=== PATIENT | male | born 1940 | race Caucasian/White ===

== ENCOUNTER 2016-07-15 08:02 | Day surgery (SDC) | payer MEDICARE, OTHER ==
[~2016-07-15 08:02] MED LIST: ALPRAZolam 0.25 MG TAB PO PRN; ALPRAZolam 0.5 MG TAB PO PRN; ASPIRIN 325 MG TAB PO STA; ATORVASTATIN 80 MG TAB PO STA; NITROGLYCERIN SL TABS 0.4 MG TAB SUBLINGUAL PRN; SODIUM CHLORIDE 0.9% 1,000 ML in EMPTY BAG 1 BAG IV ONE
[2016-07-15] MEDS ORDERED: MIDAZOLAM 2 MG/2 ML VIAL IVP ONE ×2 (12:14)
[2016-07-15] MEDS ORDERED: NITROGLYCERIN OINT 4 INCH/4 GM TUBE TOPICAL ONE ×2 (12:14)
[2016-07-15] MEDS ORDERED: LIDOCAINE 2% INJ 20 MG/ML SQ ONE ×2 (12:15)
[2016-07-15] MEDS ORDERED: amLODIPine 5 MG TAB PO ONE (12:20)
[2016-07-15] MEDS ORDERED: hydrALAZINE HCL 20 MG/ML 1 ML VIAL IVP ONE (12:33)
[2016-07-15] MEDS ORDERED: IODIXANOL 320 MG/ML 100 ML INTRAARTER ONE (12:38)
[2016-07-15] MEDS ORDERED: FUROSEMIDE 10 MG/ML 4 ML VIAL IV ONE (12:38)
[2016-07-15] MEDS ORDERED: RX INFO: IV CONTRAST WAS GIVEN 1 EACH MISC MISCELLANE PRN (12:46)
--- NOTE | 2016-07-15 13:16 | CC ---
DATE OF SERVICE: INDICATION: Unstable angina. A 76-year-old gentleman who presented to me with progressively worsening shortness of breath has history of abdominal aortic aneurysm, status post aortic stent graft and also has extensive PAD. He had a stress test back in October of 2015 that showed a fixed inferior wall defect. Had a CT scan of the chest that was negative for pulmonary embolism in March 2016. Because of persistent unexplained symptoms, I advised the patient to undergo coronary angiogram to rule out significant coronary artery disease. He had been explained of risks, benefits, and alternatives. His renal function showed elevated creatinine with a low GFR. He understands contrast-induced nephropathy. He was admitted ahead of time and treated with IV fluids. PROCEDURE NOTE: Initially we were thinking of performing a radial artery catheterization on this patient; however, his radial pulses are feeble so we decided to go ahead and do a femoral cath. The patient underwent a femoral cath uneventfully. After obtaining informed consent, left heart catheterization and coronary angiogram are performed via the right femoral artery using standard Jasmine catheters. Patient tolerated the procedure well without any obvious immediate complications. I used a Glidewire to advance the catheter across the aortic stent graft and used a long exchange length wire to exchange all the catheters in the aortic root. Patient had elevated blood pressures and received Norvasc and will receive hydralazine if necessary. FINDINGS: 1. HEMODYNAMICS: Left ventricular end-diastolic pressure ( ) mm. The patient received IV Lasix. 2. ANGIOGRAPHIC DATA: Left main coronary artery: Left main coronary artery appears calcified with mild atherosclerotic plaque in the distal left main. It divides into left anterior descending coronary artery and circumflex coronary artery. LAD is a large vessel that gives off large-caliber diagonal branches. The third diagonal branch shows 80% to 90% stenosis in its proximal portion. Circumflex coronary artery has moderate stenosis in its proximal part which is 60% to 70% at its worse. LAD shows mild to moderate atherosclerotic plaque in its proximal part. Right coronary artery is a small nondominant vessel and shows moderate disease proximally. CONCLUSIONS: Three-vessel coronary artery disease with severe stenosis involving diagonal branch, moderate stenosis involving circumflex coronary artery and mild to moderate proximal to mid left anterior descending artery disease. I reviewed angiographic data with Dr. Remy Ortega who felt that angioplasty of the diagonal will be technically challenging ( ) of little benefit to the patient given the relatively small caliber vessel, but patient may benefit from the angioplasty of the circumflex. We will do this at another setting as patient has renal insufficiency and his contrast threshold is only 126. I used a total of 45 mL of contrast ( ) performed this procedure.
[2016-07-15 14:02] LABS: Glucose,Whole Blood 145 mg/dL (75-99)
[2016-07-15 17:25] VITALS: BMI 34.9
[2016-07-15] MEDS: SODIUM CHLORIDE 0.9% 1,000 ML IV SCH (18:16)
[2016-07-15] MEDS: METOPROLOL TARTRATE 25 MG TAB PO SCH (19:51)
[2016-07-16 04:22] VITALS: RESP 18
[2016-07-16] MEDS: SODIUM CHLORIDE 0.9% 1,000 ML IV SCH (05:40)
[2016-07-16] MEDS ORDERED: amLODIPine 10 MG TAB PO STA (07:35)
[2016-07-16] MEDS ORDERED: cloNIDine HCL 0.1 MG TAB PO STA (07:36)
--- NOTE | 2016-07-16 08:14 | DS ---
DATE OF ADMISSION: 07/15/2016 DATE OF DISCHARGE: 07/16/2016 FINAL DIAGNOSIS: Unstable angina. PROCEDURES PERFORMED: Left heart catheterization. SECONDARY DIAGNOSIS: Renal insufficiency. REASON FOR ADMISSION: Renal insufficiency, hydration. This is a 76-year-old gentleman who presented to us with unstable angina primarily in the form of progressive worsening shortness of breath, underwent cardiac catheterization by me that revealed significant 2-vessel coronary artery disease. He has renal insufficiency. We hydrated him before and after. The plan at this stage is to bring him back and attempt angioplasty of la posta circumflex coronary artery. He is going to check his electrolytes this morning. He has had a fairly uneventful night. Blood pressures have been poorly controlled this morning. It is 170/80. He is already on Zestril and Lopressor, received a dose of Norvasc yesterday. I am giving him dose of Norvasc this morning along with Catapres and I will further adjust the antihypertensives as outpatient. I also added Lasix and potassium. On exam this morning, he is comfortable at rest. Blood pressure is elevated. There is no jugular venous distention. Chest exam reveals good air entry bilaterally. Heart exam reveals first and second heart sounds. No gallop. Abdomen is soft. Exam of the extremities did not reveal any edema. Right groin shows a small hematoma. No pulsatile masses. No bruit. There is ecchymosis. Labs are pending at this time. Discharge medications include: 1. Norvasc 10 mg daily. 2. Aspirin. 3. Catapres 0.1 b.i.d. 4. Plavix 75 mg q. daily. 5. Lisinopril 20 q. daily. 6. Zestril 5 q. daily. 7. Metoprolol 25 b.i.d. 8. Along with potassium. FOLLOWUP: Patient will be followed up in my office in a week's time and will be scheduled for angioplasty and we will follow his renal function.
[2016-07-16 08:19] VITALS: BP 175/68; PULSE 96; TEMP 98.3
[2016-07-16] MEDS: METOPROLOL TARTRATE 25 MG TAB PO SCH (08:36)
[2016-07-16 08:53] LABS: Anion Gap 11 mmol/L; Blood Urea Nitrogen 24 mg/dL (9-20); Calcium 8.7 mg/dL (8.4-10.2); Carbon Dioxide 27 mmol/L (22-30); Chloride 102 mmol/L (98-107); Glucose 196 mg/dL (74-99); Non-African American GFR(MDRD) 51 (>60 ml/min/1.73 sqM); Potassium 4.6 mmol/L (3.5-5.1); Sodium 140 mmol/L (137-145)
[2016-07-16] MEDS ORDERED: ASPIRIN 81 MG CHEW PO SCH (09:00)
[2016-07-16] MEDS ORDERED: LISINOPRIL 5 MG TAB PO SCH (09:00)
[2016-07-16] MEDS ORDERED: POTASSIUM CHLORIDE ER 10 MEQ TAB.ER.PRT PO SCH (09:00)
[2016-07-16] MEDS ORDERED: FUROSEMIDE 20 MG TAB PO SCH (09:00)
[2016-07-16] MEDS ORDERED: CLOPIDOGREL 75 MG TAB PO SCH (09:00)
[2016-07-16] MEDS ORDERED: cloNIDine HCL 0.1 MG TAB PO SCH (21:00)
[2016-07-17] MEDS ORDERED: amLODIPine 10 MG TAB PO SCH (09:00)
== END 2016-07-16 11:29 | disposition home or self-care (01) ==
LOC: CATHCVL 08:02 → 3OBS 12:30 → CATHCVL 07-16 11:29
PROVIDERS: ATTEND Internal Medicine Interventional Cardiology
DX: I25.110 Atherosclerotic heart disease of native coronary artery with unstable angina pectoris (principal); N28.9 Disorder of kidney and ureter, unspecified; R03.0 Elevated blood-pressure reading, without diagnosis of hypertension; I45.10 Unspecified right bundle-branch block; R94.31 Abnormal electrocardiogram [ECG] [EKG]; I71.4 Abdominal aortic aneurysm, without rupture; I70.213 Atherosclerosis of native arteries of extremities with intermittent claudication, bilateral legs; Z79.02 Long term (current) use of antithrombotics/antiplatelets; Z79.82 Long term (current) use of aspirin; Z79.899 Other long term (current) drug therapy
CPT/HCPCS: 93458; 80048; C1769 ×3; C1894 ×2; J2001; J2250; J0360; J1940; Q9967

== ENCOUNTER 2016-08-12 14:28 | Emergency (ER) | payer MEDICARE, OTHER ==
--- NOTE | 2016-08-12 17:16 | ED ---
General Adult HPI - General Chief complaint: Abdominal Pain Stated complaint: High BP-sent by Time Seen by Provider: 08/12/16 16:45 Source: patient, family, RN notes reviewed Mode of arrival: wheelchair Limitations: no limitations - History of Present Illness Initial comments: This is a 76-year-old male with a history of a abdominal aortic aneurysm with a stent placement in November of last year who presents with complaints of elevated blood pressure and also exertional dyspnea. He states she's been having difficulty with his medication. He states prior to the aneurysm he did not take any medication out blood pressure is been variable. He also is a type II diabetic he states he had an episode of hypoglycemia recently quit taking his medication. He denies any headache dizziness blurry vision nausea vomiting or other symptoms just exertional dyspnea. - Related Data Home Medications Medication Instructions Recorded Confirmed Clopidogrel [Plavix] 75 mg PO DAILY 07/14/16 08/12/16 Furosemide [Lasix] 20 mg PO DAILY 07/14/16 08/12/16 Lisinopril [Zestril] 5 mg PO DAILY 07/14/16 08/12/16 Metoprolol Tartrate [Lopressor] 25 mg PO BID 07/14/16 08/12/16 Potassium Chloride [Klor-Con 10] 10 meq PO DAILY 07/14/16 08/12/16 amLODIPine [Norvasc] 10 mg PO DAILY 07/16/16 08/12/16 cloNIDine HCL [Catapres] 0.1 mg PO BID 07/16/16 08/12/16 Aspirin 325 mg PO DAILY 08/12/16 08/12/16 Atorvastatin [Lipitor] 20 mg PO HS 08/12/16 08/12/16 Isosorbide Mononitrate ER [Imdur] 30 mg PO DAILY 08/12/16 08/12/16 Nitroglycerin Sl Tabs [Nitrostat] 0.4 mg SUBLINGUAL Q5M PRN 08/12/16 08/12/16 cloNIDine HCL [Catapres] 0.3 mg PO TID 08/12/16 08/12/16 Allergies Allergy/AdvReac Type Severity Reaction Status Date / Time No Known Allergies Allergy Verified 08/12/16 16:41 Review of Systems ROS Statement: Those systems with pertinent positive or pertinent negative responses have been documented in the HPI. ROS Other: All systems not noted in ROS Statement are negative. Past Medical History Past Medical History: Hyperlipidemia, Hypertension History of Any Multi-Drug Resistant Organisms: None Reported Additional Past Surgical History / Comment(s): aortic aneursym Past Psychological History: No Psychological Hx Reported Smoking Status: Former smoker Past Alcohol Use History: Rare Past Drug Use History: None Reported General Exam - General Exam Comments Initial Comments: This is a well-developed well-nourished awake alert oriented times 3 male Limitations: no limitations General appearance: alert, in no apparent distress Head exam: Present: atraumatic, normocephalic, normal inspection Eye exam: Present: normal appearance, PERRL, EOMI. Absent: scleral icterus, conjunctival injection, periorbital swelling ENT exam: Present: mucous membranes dry Neck exam: Present: normal inspection. Absent: tenderness, meningismus, lymphadenopathy Respiratory exam: Present: normal lung sounds bilaterally. Absent: respiratory distress, wheezes, rales, rhonchi, stridor Cardiovascular Exam: Present: regular rate, normal rhythm, normal heart sounds. Absent: systolic murmur, diastolic murmur, rubs, gallop, clicks GI/Abdominal exam: Present: soft, normal bowel sounds. Absent: distended, tenderness, guarding, rebound, rigid Extremities exam: Present: normal inspection, full ROM, normal capillary refill , pedal edema (Trace edema). Absent: tenderness, joint swelling, calf tenderness Back exam: Present: normal inspection Neurological exam: Present: alert, oriented X3, CN II-XII intact Psychiatric exam: Present: normal affect, normal mood Skin exam: Present: warm, dry, intact, normal color. Absent: rash Course Vital Signs 08/12/16 08/12/16 08/12/16 14:53 16:27 17:00 Temperature 97.0 F L Pulse Rate 88 76 74 Respiratory 18 16 Rate Blood Pressure 183/84 146/80 159/77 O2 Sat by Pulse 93 L 98 98 Oximetry 08/12/16 08/12/16 18:00 18:56 Temperature 97.2 F L 97.6 F Pulse Rate 79 77 Respiratory 16 16 Rate Blood Pressure 157/85 183/74 O2 Sat by Pulse 99 97 Oximetry EKG Findings - EKG Results: EKG: interpreted by BEULAH, sinus rhythm (Sinus rhythm rate 77 appear to 194 QRS duration 122 QT/QTC of 400/452) block old septal changes no acute ST-T wave changes.) Medical Decision Making - Medical Decision Making I did a long discussion with the patient and his daughter regarding the findings. 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 He is asymptomatic at this time. - Lab Data Result diagrams: 08/12/16 17:00 08/12/16 17:00 Lab Results 08/12/16 08/12/16 08/12/16 Range/Units 17:00 17:00 17:00 WBC 8.0 (3.8-10.6) k/uL RBC 4.18 L (4.30-5.90) m/uL Hgb 14.3 (13.0-17.5) gm/dL Hct 42.4 (39.0-53.0) % MCV 101.5 H (80.0-100.0) fL MCH 34.3 (25.0-35.0) pg MCHC 33.8 (31.0-37.0) g/dL RDW 13.2 (11.5-15.5) % Plt Count 192 (150-450) k/uL Neutrophils % 68 % Lymphocytes % 19 % Monocytes % 7 % Eosinophils % 2 % Basophils % 1 % Neutrophils # 5.4 (1.3-7.7) k/uL Lymphocytes # 1.5 (1.0-4.8) k/uL Monocytes # 0.5 (0-1.0) k/uL Eosinophils # 0.2 (0-0.7) k/uL Basophils # 0.1 (0-0.2) k/uL Macrocytosis Slight Sodium (137-145) mmol/L Potassium (3.5-5.1) mmol/L Chloride (98-107) mmol/L Carbon Dioxide (22-30) mmol/L Anion Gap mmol/L BUN (9-20) mg/dL Creatinine (0.66-1.25) mg/dL Est GFR (MDRD) Af Amer (>60 ml/min/1.73 sqM) Est GFR (MDRD) Non-Af (>60 ml/min/1.73 sqM) Glucose (74-99) mg/dL Calcium (8.4-10.2) mg/dL Magnesium (1.6-2.3) mg/dL Total Bilirubin (0.2-1.3) mg/dL AST (17-59) U/L ALT (21-72) U/L Alkaline Phosphatase (38-126) U/L Total Creatine Kinase 88 (55-170) U/L CK-MB (CK-2) 1.4 (0.0-2.4) ng/mL CK-MB (CK-2) Rel Index 1.6 NT-Pro-B Natriuret Pep 314 pg/mL Total Protein (6.3-8.2) g/dL Albumin (3.5-5.0) g/dL 08/12/16 Range/Units 17:00 WBC (3.8-10.6) k/uL RBC (4.30-5.90) m/uL Hgb (13.0-17.5) gm/dL Hct (39.0-53.0) % MCV (80.0-100.0) fL MCH (25.0-35.0) pg MCHC (31.0-37.0) g/dL RDW (11.5-15.5) % Plt Count (150-450) k/uL Neutrophils % % Lymphocytes % % Monocytes % % Eosinophils % % Basophils % % Neutrophils # (1.3-7.7) k/uL Lymphocytes # (1.0-4.8) k/uL Monocytes # (0-1.0) k/uL Eosinophils # (0-0.7) k/uL Basophils # (0-0.2) k/uL Macrocytosis Sodium 138 (137-145) mmol/L Potassium 4.9 (3.5-5.1) mmol/L Chloride 100 (98-107) mmol/L Carbon Dioxide 26 (22-30) mmol/L Anion Gap 12 mmol/L BUN 24 H (9-20) mg/dL Creatinine 1.30 H (0.66-1.25) mg/dL Est GFR (MDRD) Af Amer >60 (>60 ml/min/1.73 sqM) Est GFR (MDRD) Non-Af 54 (>60 ml/min/1.73 sqM) Glucose 117 H (74-99) mg/dL Calcium 9.4 (8.4-10.2) mg/dL Magnesium 2.0 (1.6-2.3) mg/dL Total Bilirubin 0.9 (0.2-1.3) mg/dL AST 39 (17-59) U/L ALT 28 (21-72) U/L Alkaline Phosphatase 54 (38-126) U/L Total Creatine Kinase (55-170) U/L CK-MB (CK-2) (0.0-2.4) ng/mL CK-MB (CK-2) Rel Index NT-Pro-B Natriuret Pep pg/mL Total Protein 7.7 (6.3-8.2) g/dL Albumin 4.4 (3.5-5.0) g/dL - Radiology Data Radiology results: report reviewed (I did review the x-ray report no acute findings), image reviewed Disposition Clinical Impression: Dyspnea on exertion, Hypertension Disposition: HOME SELF-CARE Condition: Good Instructions: Dyspnea (ED), Hypertension (ED) Referrals: Tye Dowd DO [Primary Care Provider] - 1-2 days
[2016-08-12 17:20] LABS: Basophils # (A) 0.1 k/uL (0-0.2); Basophils % (A) 1 %; CH 35.1; CHCM 34.8; Eosinophils # (A) 0.2 k/uL (0-0.7); Eosinophils % (A) 2 %; HCT 42.4 % (39.0-53.0); HDW 2.83; HGB 14.3 gm/dL (13.0-17.5); Luc # (Auto) 0.29; Luc % (Auto) 4; Lymphocytes # (A) 1.5 k/uL (1.0-4.8); Lymphocytes % (A) 19 %; MCH 34.3 pg (25.0-35.0); MCHC 33.8 g/dL (31.0-37.0); MCV 101.5 fL (80.0-100.0); Macrocytosis Slight; Mean Platelet Volume 8.7; Monocytes # (A) 0.5 k/uL (0-1.0); Monocytes % (A) 7 %; Neutrophils # (A) 5.4 k/uL (1.3-7.7); Neutrophils % (A) 68 %; RBC 4.18 m/uL (4.30-5.90); RDW 13.2 % (11.5-15.5); WBC (Perox) 8.27
[2016-08-12 17:32] LABS: ALT 28 U/L (21-72); AST 39 U/L (17-59); Alkaline Phosphatase 54 U/L (38-126); Anion Gap 12 mmol/L; Blood Urea Nitrogen 24 mg/dL (9-20); Calcium 9.4 mg/dL (8.4-10.2); Carbon Dioxide 26 mmol/L (22-30); Chloride 100 mmol/L (98-107); Glucose 117 mg/dL (74-99); Non-African American GFR(MDRD) 54 (>60 ml/min/1.73 sqM); Sodium 138 mmol/L (137-145); Total Bilirubin 0.9 mg/dL (0.2-1.3); Total Protein 7.7 g/dL (6.3-8.2)
[2016-08-12 17:36] LABS: Potassium 4.9 mmol/L (3.5-5.1)
[2016-08-12 17:51] LABS: Creatine Kinase MB 1.4 ng/mL (0.0-2.4)
--- NOTE | 2016-08-12 18:21 | XR ---
EXAMINATION TYPE: XR chest 2V DATE OF EXAM: 08/12/2016 5:52 PM COMPARISON: 11/14/2015 HISTORY: Short of breath TECHNIQUE: Frontal and lateral views of the chest are obtained. FINDINGS: Heart and mediastinum are normal. Lungs are clear. Costophrenic angles are clear. There ar e no hilar masses. There are chest leads. Bony thorax is intact. IMPRESSION: No active cardiopulmonary disease. No change.
[2016-08-12 19:33] VITALS: BP 175/80; PULSE 87; RESP 18; TEMP 97.8
== END 2016-08-12 19:33 | disposition home or self-care (01) ==
LOC: EC 14:28
DX: R06.09 Other forms of dyspnea (principal); I10 Essential (primary) hypertension; E78.5 Hyperlipidemia, unspecified; Z95.828 Presence of other vascular implants and grafts; Z79.82 Long term (current) use of aspirin; Z79.02 Long term (current) use of antithrombotics/antiplatelets; Z79.899 Other long term (current) drug therapy; Z87.891 Personal history of nicotine dependence
CPT/HCPCS: 36415; 71020; 80053; 82550; 82553; 83735; 83880; 85025; 93005; 99284

== ENCOUNTER → 2016-09-09 | Outpatient (CLI) | payer MEDICARE, OTHER ==
--- NOTE | 2016-09-09 22:23 | US ---
EXAMINATION TYPE: US carotid duplex RT DATE OF EXAM: 09/09/2016 3:38 PM COMPARISON: 01/27/2011 CLINICAL HISTORY: 76-year-old male R09.89 Right carotid bruit. TECHNIQUE: Carotid duplex ultrasound examination. Indirect Doppler criteria was utilized. FINDINGS: There is moderate atherosclerotic change at the right carotid bifurcation and moderate to severe athe rosclerotic change at the left bifurcation. The left ICA is noted to be tortuous. EXAM MEASUREMENTS: RIGHT: Peak Systolic Velocity (PSV) cm/sec ----- Right CCA: 74.0 ----- Right ICA: 95.8 ----- Right ECA: 92.9 ICA/CCA ratio: 1.3 RIGHT: End Diastole cm/sec ----- Right CCA: 12.9 ----- Right ICA: 24.6 ----- Right ECA: 7.1 LEFT: Peak Systolic Velocity (PSV) cm/sec ----- Left CCA: 88.7 ----- Left ICA: 139.2 ----- Left ECA: 171.7 ICA/CCA ratio: 1.6 LEFT: End Diastole cm/sec ----- Left CCA: 12.8 ----- Left ICA: 27.6 ----- Left ECA: 171.7 VERTEBRALS (direction of flow): Right Vertebral: Antegrade Left Vertebral: Antegrade IMPRESSION: Moderate to severe atherosclerotic change at the left carotid bifurcation possibly with a moderate (5 0-69%) proximal ICA stenosis. Criteria for Assigning % of Stenosis / Diameter reduction (Estimation based on the indirect measurements of the internal carotid artery velocities (ICA PSV). 1. Normal (no stenosis)=ICA PSV < 125 cm/s: ratio < 2.0: ICA EDV<40 cm/s. 2. Less than 50% stenosis=ICA PSV < 125 cm/s: ratio < 2.0: ICA EDV<40 cm/s. 3. 50 to 69% stenosis=ICA PSV of 125 to 230 cm/s: ration 2.0 ? 4.0: ICA EDV 40-100 cm/s. 4. Greater than 70% stenosis to near occlusion= ICA PSV > 230 cm/s: ratio > 4.0: ICA EDV > 100 cm/s. 5. Near occlusion= ICA PSV velocities may be low or undetectable: variable ratio and ICA EDV. 6. Total occlusion=unable to detect flow.
== END | disposition home or self-care (01) ==
LOC: RADUSWWP 15:02
PROVIDERS: ATTEND Family Medicine
DX: I65.22 Occlusion and stenosis of left carotid artery (principal)
CPT/HCPCS: 93880

== ENCOUNTER 2016-12-05 07:30 | Emergency (ER) | payer MEDICARE, OTHER ==
[2016-12-05 07:41] VITALS: PULSE 64
--- NOTE | 2016-12-05 08:22 | ED ---
General Adult HPI - General Chief complaint: Wound/Laceration Stated complaint: POST OP HEMORAGE Time Seen by Provider: 12/05/16 08:04 Source: patient, EMS, RN notes reviewed Mode of arrival: EMS Limitations: no limitations - History of Present Illness Initial comments: 76-year-old male presents emergency Department chief complaint of left leg wound bleeding. Patient states that he was taking a shower and the aide was helping him at [facility] in which the scab came off and hours squirting blood from his left calf region. Patient had bypass performed at [facility] 12 days ago. Patient states she's had left leg pain over the last few days to 1 week states that there is a large amount of bruising. He states is not worsened denies any chest pain or shortness of breath from his baseline. Patient states that they put pressure on his left leg for a few seconds and it would not stop. Bleeding has stopped at this point with pressure dressing. Patient does take Plavix. - Related Data Home Medications Medication Instructions Recorded Confirmed Clopidogrel [Plavix] 75 mg PO DAILY 07/14/16 08/12/16 Furosemide [Lasix] 20 mg PO DAILY 07/14/16 08/12/16 Lisinopril [Zestril] 5 mg PO DAILY 07/14/16 08/12/16 Metoprolol Tartrate [Lopressor] 25 mg PO BID 07/14/16 08/12/16 Potassium Chloride [Klor-Con 10] 10 meq PO DAILY 07/14/16 08/12/16 amLODIPine [Norvasc] 10 mg PO DAILY 07/16/16 08/12/16 cloNIDine HCL [Catapres] 0.1 mg PO BID 07/16/16 08/12/16 Aspirin 325 mg PO DAILY 08/12/16 08/12/16 Atorvastatin [Lipitor] 20 mg PO HS 08/12/16 08/12/16 Isosorbide Mononitrate ER [Imdur] 30 mg PO DAILY 08/12/16 08/12/16 Nitroglycerin Sl Tabs [Nitrostat] 0.4 mg SUBLINGUAL Q5M PRN 08/12/16 08/12/16 cloNIDine HCL [Catapres] 0.3 mg PO TID 08/12/16 08/12/16 Allergies Allergy/AdvReac Type Severity Reaction Status Date / Time No Known Allergies Allergy Verified 08/12/16 16:41 Review of Systems ROS Statement: Those systems with pertinent positive or pertinent negative responses have been documented in the HPI. ROS Other: All systems not noted in ROS Statement are negative. Past Medical History Past Medical History: Hyperlipidemia, Hypertension History of Any Multi-Drug Resistant Organisms: None Reported Additional Past Surgical History / Comment(s): aortic aneursym and bypass surgery 11/29 Past Psychological History: No Psychological Hx Reported Smoking Status: Former smoker Past Alcohol Use History: Rare Past Drug Use History: None Reported General Exam Limitations: no limitations General appearance: alert, in no apparent distress Respiratory exam: Present: normal lung sounds bilaterally. Absent: respiratory distress, wheezes, rales, rhonchi, stridor Cardiovascular Exam: Present: regular rate, normal rhythm, normal heart sounds. Absent: systolic murmur, diastolic murmur, rubs, gallop, clicks Extremities exam: Present: other (Extensive bruising to extremities, left leg there is hematoma noted, multiple healing incisions left calf there is 0.5 cm open wound with no active bleeding pulses are equal bilaterally) Skin exam: Present: warm, dry Course Vital Signs 12/05/16 12/05/16 07:31 08:47 Temperature 97.7 F 98.6 F Pulse Rate 64 64 Respiratory 17 18 Rate Blood Pressure 134/63 131/53 O2 Sat by Pulse 96 94 L Oximetry Medical Decision Making - Medical Decision Making 76-year-old male present emergency department with chief complaint of left wound bleeding. This was dressed by EMS and there is no active bleeding it has been open for greater than 10 minutes with no active bleeding. Steri-Strips were placed on the wound to help close the gap and dressing reapplied. I did explain to patient that if rebleeding occurs that he needs to put pressure on for at least 10 minutes and if symptoms persist to return the emergency Department. Disposition Clinical Impression: Bleeding from wound Disposition: HOME SELF-CARE Condition: Stable Instructions: Acute Wound Care (ED) Additional Instructions: If rebleeding occurs apply pressure for 10 minutes.Please return to the Emergency Department if symptoms worsen or any other concerns. Referrals: Tye Dowd DO [Primary Care Provider] - 1-2 days Time of Disposition: 08:22
[2016-12-05 08:49] VITALS: BP 131/53; RESP 18; TEMP 98.6
== END 2016-12-05 08:49 | disposition home or self-care (01) ==
LOC: EC 07:30
DX: M96.830 Postprocedural hemorrhage of a musculoskeletal structure following a musculoskeletal system procedure (principal); E78.5 Hyperlipidemia, unspecified; I10 Essential (primary) hypertension; Z87.891 Personal history of nicotine dependence; Y83.2 Surgical operation with anastomosis, bypass or graft as the cause of abnormal reaction of the patient, or of later complication, without mention of misadventure at the time of the procedure; Z79.01 Long term (current) use of anticoagulants; Z79.82 Long term (current) use of aspirin; Z79.899 Other long term (current) drug therapy
CPT/HCPCS: 99283

== ENCOUNTER → 2017-06-04 | Outpatient (CLI) | payer MEDICARE, OTHER | END | disposition home or self-care (01) | LOC: RADMRIMAIN 12:15 | PROVIDERS: ATTEND Family Medicine | DX: Z53.9 Procedure and treatment not carried out, unspecified reason (principal) ==

== ENCOUNTER 2017-06-28 14:09 | Observation (INO) | payer MEDICARE, OTHER ==
--- NOTE | 2017-06-28 14:15 | ED ---
General Adult HPI - General Chief complaint: Neuro Symptoms/Deficit Stated complaint: Syncope Time Seen by Provider: 06/28/17 14:12 Source: patient, EMS, RN notes reviewed, old records reviewed Mode of arrival: EMS Limitations: no limitations - History of Present Illness Initial comments: This is a 69-year-old male to the ER for evaluation of syncopal event. Patient has history of heart disease. Patient is recent history of nausea vomiting and loose stools. Not feeling well, decreased appetite and activity level. Patient states he was getting out of his car when he had a witnessed syncopal event, patient states he did urinate himself. He denies headache chest pain no shortness of breath. Patient's main complaint is generalized weakness and not feeling well. No current or travel history no known sick contacts or recent change in medications - Related Data Home Medications Medication Instructions Recorded Confirmed Clopidogrel [Plavix] 75 mg PO DAILY 07/14/16 06/28/17 Nitroglycerin Sl Tabs [Nitrostat] 0.4 mg SUBLINGUAL Q5M PRN 08/12/16 06/28/17 Aspirin EC [Ecotrin Low Dose] 81 mg PO DAILY 06/28/17 06/28/17 Metoprolol Tartrate [Lopressor] 50 mg PO BID 06/28/17 06/28/17 Pravastatin Sodium [Pravachol] 10 mg PO HS 06/28/17 06/28/17 Allergies Allergy/AdvReac Type Severity Reaction Status Date / Time No Known Allergies Allergy Verified 06/28/17 14:52 Review of Systems ROS Statement: Those systems with pertinent positive or pertinent negative responses have been documented in the HPI. ROS Other: All systems not noted in ROS Statement are negative. Past Medical History Past Medical History: Hyperlipidemia, Hypertension History of Any Multi-Drug Resistant Organisms: None Reported Additional Past Surgical History / Comment(s): aortic aneursym and bypass surgery 11/29 Past Psychological History: No Psychological Hx Reported Smoking Status: Former smoker Past Alcohol Use History: Rare Past Drug Use History: None Reported General Exam Limitations: no limitations General appearance: alert, in no apparent distress Head exam: Present: atraumatic, normocephalic, normal inspection Eye exam: Present: normal appearance, PERRL, EOMI. Absent: scleral icterus, conjunctival injection, periorbital swelling ENT exam: Present: normal exam, mucous membranes moist Neck exam: Present: normal inspection. Absent: tenderness, meningismus, lymphadenopathy Respiratory exam: Present: normal lung sounds bilaterally. Absent: respiratory distress, wheezes, rales, rhonchi, stridor Cardiovascular Exam: Present: regular rate, normal rhythm, normal heart sounds. Absent: systolic murmur, diastolic murmur, rubs, gallop, clicks GI/Abdominal exam: Present: soft, normal bowel sounds. Absent: distended, tenderness, guarding, rebound, rigid Extremities exam: Present: normal inspection, full ROM, normal capillary refill. Absent: tenderness, pedal edema, joint swelling, calf tenderness Back exam: Present: normal inspection Neurological exam: Present: alert, oriented X3, CN II-XII intact Psychiatric exam: Present: normal affect, normal mood Skin exam: Present: warm, dry, intact, normal color. Absent: rash Course Vital Signs 06/28/17 06/28/17 06/28/17 14:11 14:21 16:14 Temperature 98 F Pulse Rate 58 L 58 L 68 Respiratory 16 20 16 Rate Blood Pressure 121/51 99/60 124/58 O2 Sat by Pulse 97 90 L 97 Oximetry - Reevaluation(s) Reevaluation #1: 06/28/17 16:26 Patient is without syncopal event here in the emergency room, patient states she still does not feel well EKG Findings - EKG Comments: EKG Findings:: EKG shows sinus bradycardia rate of 58, RI 194, QRS 142, QTc 481 Medical Decision Making - Medical Decision Making 69 male the ER status post syncopal event witnessed syncope, patient passed out did lose his urine. Patient states he does feel significantly weak nauseous on arrival to ER with vomiting. Patient be admitted for continued IV hydration and monitoring of rhythm as he is a history of heart disease - Lab Data Result diagrams: 06/28/17 14:17 06/28/17 14:17 Lab Results 06/28/17 06/28/17 06/28/17 Range/Units 14:15 14:17 14:17 WBC 8.6 (3.8-10.6) k/uL RBC 4.02 L (4.30-5.90) m/uL Hgb 13.4 (13.0-17.5) gm/dL Hct 41.7 (39.0-53.0) % MCV 103.8 H (80.0-100.0) fL MCH 33.3 (25.0-35.0) pg MCHC 32.1 (31.0-37.0) g/dL RDW 13.9 (11.5-15.5) % Plt Count 184 (150-450) k/uL Neutrophils % 72 % Lymphocytes % 15 % Monocytes % 7 % Eosinophils % 3 % Basophils % 1 % Neutrophils # 6.2 (1.3-7.7) k/uL Lymphocytes # 1.3 (1.0-4.8) k/uL Monocytes # 0.6 (0-1.0) k/uL Eosinophils # 0.3 (0-0.7) k/uL Basophils # 0.0 (0-0.2) k/uL Macrocytosis Slight PT (9.0-12.0) sec INR (<1.2) APTT (22.0-30.0) sec D-Dimer (<0.60) mg/L FEU Sodium (137-145) mmol/L Potassium (3.5-5.1) mmol/L Chloride (98-107) mmol/L Carbon Dioxide (22-30) mmol/L Anion Gap mmol/L BUN (9-20) mg/dL Creatinine (0.66-1.25) mg/dL Est GFR (MDRD) Af Amer (>60 ml/min/1.73 sqM) Est GFR (MDRD) Non-Af (>60 ml/min/1.73 sqM) Glucose (74-99) mg/dL POC Glucose (mg/dL) 160 H (75-99) mg/dL POC Glu Senior Tableau Developer ID [email or web address] Plasma Lactic Acid Keshav (0.7-2.0) mmol/L Calcium (8.4-10.2) mg/dL Phosphorus (2.5-4.5) mg/dL Magnesium (1.6-2.3) mg/dL Total Bilirubin (0.2-1.3) mg/dL AST (17-59) U/L ALT (21-72) U/L Alkaline Phosphatase (38-126) U/L Total Creatine Kinase 46 L (55-170) U/L CK-MB (CK-2) 1.2 (0.0-2.4) ng/mL CK-MB (CK-2) Rel Index 2.6 Troponin I 0.022 (0.000-0.034) ng/mL NT-Pro-B Natriuret Pep pg/mL Total Protein (6.3-8.2) g/dL Albumin (3.5-5.0) g/dL 06/28/17 06/28/17 06/28/17 Range/Units 14:17 14:17 14:17 WBC (3.8-10.6) k/uL RBC (4.30-5.90) m/uL Hgb (13.0-17.5) gm/dL Hct (39.0-53.0) % MCV (80.0-100.0) fL MCH (25.0-35.0) pg MCHC (31.0-37.0) g/dL RDW (11.5-15.5) % Plt Count (150-450) k/uL Neutrophils % % Lymphocytes % % Monocytes % % Eosinophils % % Basophils % % Neutrophils # (1.3-7.7) k/uL Lymphocytes # (1.0-4.8) k/uL Monocytes # (0-1.0) k/uL Eosinophils # (0-0.7) k/uL Basophils # (0-0.2) k/uL Macrocytosis PT 10.3 (9.0-12.0) sec INR 1.0 (<1.2) APTT 22.1 (22.0-30.0) sec D-Dimer 1.86 H (<0.60) mg/L FEU Sodium 138 (137-145) mmol/L Potassium 5.1 (3.5-5.1) mmol/L Chloride 103 (98-107) mmol/L Carbon Dioxide 26 (22-30) mmol/L Anion Gap 9 mmol/L BUN 25 H (9-20) mg/dL Creatinine 1.50 H (0.66-1.25) mg/dL Est GFR (MDRD) Af Amer 55 (>60 ml/min/1.73 sqM) Est GFR (MDRD) Non-Af 45 (>60 ml/min/1.73 sqM) Glucose 167 H (74-99) mg/dL POC Glucose (mg/dL) (75-99) mg/dL POC Glu Senior Tableau Developer ID Plasma Lactic Acid Keshav 2.1 H* (0.7-2.0) mmol/L Calcium 8.7 (8.4-10.2) mg/dL Phosphorus 3.2 (2.5-4.5) mg/dL Magnesium 1.9 (1.6-2.3) mg/dL Total Bilirubin 0.8 (0.2-1.3) mg/dL AST 22 (17-59) U/L ALT 17 L (21-72) U/L Alkaline Phosphatase 47 (38-126) U/L Total Creatine Kinase (55-170) U/L CK-MB (CK-2) (0.0-2.4) ng/mL CK-MB (CK-2) Rel Index Troponin I (0.000-0.034) ng/mL NT-Pro-B Natriuret Pep pg/mL Total Protein 6.6 (6.3-8.2) g/dL Albumin 3.8 (3.5-5.0) g/dL 06/28/17 Range/Units 14:17 WBC (3.8-10.6) k/uL RBC (4.30-5.90) m/uL Hgb (13.0-17.5) gm/dL Hct (39.0-53.0) % MCV (80.0-100.0) fL MCH (25.0-35.0) pg MCHC (31.0-37.0) g/dL RDW (11.5-15.5) % Plt Count (150-450) k/uL Neutrophils % % Lymphocytes % % Monocytes % % Eosinophils % % Basophils % % Neutrophils # (1.3-7.7) k/uL Lymphocytes # (1.0-4.8) k/uL Monocytes # (0-1.0) k/uL Eosinophils # (0-0.7) k/uL Basophils # (0-0.2) k/uL Macrocytosis PT (9.0-12.0) sec INR (<1.2) APTT (22.0-30.0) sec D-Dimer (<0.60) mg/L FEU Sodium (137-145) mmol/L Potassium (3.5-5.1) mmol/L Chloride (98-107) mmol/L Carbon Dioxide (22-30) mmol/L Anion Gap mmol/L BUN (9-20) mg/dL Creatinine (0.66-1.25) mg/dL Est GFR (MDRD) Af Amer (>60 ml/min/1.73 sqM) Est GFR (MDRD) Non-Af (>60 ml/min/1.73 sqM) Glucose (74-99) mg/dL POC Glucose (mg/dL) (75-99) mg/dL POC Glu Senior Tableau Developer ID Plasma Lactic Acid Keshav (0.7-2.0) mmol/L Calcium (8.4-10.2) mg/dL Phosphorus (2.5-4.5) mg/dL Magnesium (1.6-2.3) mg/dL Total Bilirubin (0.2-1.3) mg/dL AST (17-59) U/L ALT (21-72) U/L Alkaline Phosphatase (38-126) U/L Total Creatine Kinase (55-170) U/L CK-MB (CK-2) (0.0-2.4) ng/mL CK-MB (CK-2) Rel Index Troponin I (0.000-0.034) ng/mL NT-Pro-B Natriuret Pep 330 pg/mL Total Protein (6.3-8.2) g/dL Albumin (3.5-5.0) g/dL - Radiology Data Radiology results: report reviewed (CTA chest is negative for acute disease), image reviewed Disposition Clinical Impression: Weakness, Nausea & vomiting, Syncope Disposition: ADMITTED IP TO THIS HOSP Condition: Undetermined Referrals: Tye Dowd DO [Primary Care Provider] - 1-2 days
[2017-06-28] MEDS ORDERED: SODIUM CHLORIDE 0.9% 1,000 ML IV STA (14:28)
[2017-06-28] MEDS ORDERED: SODIUM CHLORIDE 0.9% 500 ML IV STA ×2 (14:28→15:19)
[2017-06-28] MEDS ORDERED: ONDANSETRON 4 MG/2 ML VIAL IVP STA (14:28)
[2017-06-28 14:31] LABS: Glucose,Whole Blood 160 mg/dL (75-99)
[2017-06-28 14:49] LABS: Basophils % (A) 1 %; Eosinophils # (A) 0.3 k/uL (0-0.7); Eosinophils % (A) 3 %; HCT 41.7 % (39.0-53.0); HGB 13.4 gm/dL (13.0-17.5); Lymphocytes # (A) 1.3 k/uL (1.0-4.8); Lymphocytes % (A) 15 %; MCH 33.3 pg (25.0-35.0); MCHC 32.1 g/dL (31.0-37.0); MCV 103.8 fL (80.0-100.0); Macrocytosis Slight; Mean Platelet Volume 8.3; Monocytes # (A) 0.6 k/uL (0-1.0); Monocytes % (A) 7 %; Neutrophils # (A) 6.2 k/uL (1.3-7.7); Neutrophils % (A) 72 %; Platelet Count 184 k/uL (150-450); RBC 4.02 m/uL (4.30-5.90); RDW 13.9 % (11.5-15.5); WBC 8.6 k/uL (3.8-10.6)
[2017-06-28 14:58] LABS: D-Dimer 1.86 mg/L FEU (<0.60)
[2017-06-28 15:02] LABS: Partial Thromboplastin Time 22.1 sec (22.0-30.0); Prothrombin Time 10.3 sec (9.0-12.0)
[2017-06-28 15:04] LABS: Albumin 3.8 g/dL (3.5-5.0); Calcium 8.7 mg/dL (8.4-10.2); Phosphorus 3.2 mg/dL (2.5-4.5); Potassium 5.1 mmol/L (3.5-5.1); Total Bilirubin 0.8 mg/dL (0.2-1.3); Total Protein 6.6 g/dL (6.3-8.2)
--- NOTE | 2017-06-28 15:14 | XR ---
EXAMINATION TYPE: XR chest 2V DATE OF EXAM: 06/28/2017 COMPARISON: 08/12/16 HISTORY: Shortness of breath TECHNIQUE: Frontal and lateral views of the chest are obtained. FINDINGS: Scattered senescent parenchymal changes noted. Hyperinflation compatible with COPD. No evidence for infiltrate. No evidence for atelectasis. Heart size is stable. Mediastinal structures are stable and grossly unremarkable. No evidence for hilar prominence. Degenerative changes dorsal spine. IMPRESSION: 1. No evidence for acute pulmonary disease.
[2017-06-28] MEDS ORDERED: RX INFO: IV CONTRAST WAS GIVEN 1 EACH MISC MISCELLANE PRN (15:19)
[2017-06-28 15:29] LABS: Creatine Kinase MB 1.2 ng/mL (0.0-2.4); Troponin I 0.022 ng/mL (0.000-0.034)
--- NOTE | 2017-06-28 16:17 | CT ---
EXAMINATION TYPE: CT angio chest DATE OF EXAM: 06/28/2017 COMPARISON: NONE HISTORY: Patient complains of syncopeal episode. Patient denies chest complaints. CT DLP: 486.7 mGycm CONTRAST: CT chest with contrast and 3D reconstruction with MIP imaging is performed with IV Contrast, patient injected with 75 mL of Visipaque 320. Contrast-enhanced CT of the chest was performed through the course of the pulmonary arteries with dm g and mediastinal window settings submitted. 3D reconstruction with MIP imaging was also performed. PULMONARY ARTERIES: The pulmonary arteries and their major tributaries are patent. I do not see tito dence for sizable filling defect to suggest pulmonary embolic process. LUNGS: The lungs are clear and free of infiltrate. No evidence for atelectasis. Upper lobe emphysema tous changes noted. No pulmonary nodule or mass is detected. No pleural effusion. MEDIASTINUM: Thoracic aorta is of normal caliber,however, evaluation is limited given timing of the contrast bolus. If there is concern for thoracic aortic pathology consider ELYSIA. Correlate clinicall y . The heart is mildly enlarged. No evidence for mediastinal mass. No mediastinal lymph nodes grea ter than 1cm. HILAR STRUCTURES: No evidence for mass. No hilar lymph nodes greater than 1 cm. UPPER ABDOMEN: No significant abnormality is seen. IMPRESSION: 1. No evidence for Pulmonary embolism at this time.
[2017-06-28] MEDS ORDERED: NITROGLYCERIN SL TABS 0.4 MG TAB SUBLINGUAL PRN (16:20)
[2017-06-28] MEDS ORDERED: ASPIRIN 81 MG PO STA (16:20)
[2017-06-28] MEDS ORDERED: PANTOPRAZOLE 40 MG/10 ML VIAL IVP STA (16:21)
[2017-06-28] MEDS ORDERED: ONDANSETRON 4 MG/2 ML VIAL IVP PRN (16:21)
[2017-06-28 21:02] LABS: Creatine Kinase MB 1.5 ng/mL (0.0-2.4); Troponin I 0.013 ng/mL (0.000-0.034)
[2017-06-28] MEDS: PANTOPRAZOLE 40 MG/10 ML VIAL IVP SCH (21:28)
[2017-06-28 23:14] VITALS: BMI 32.0
[2017-06-28] MEDS ORDERED: LORATADINE 10 MG TAB PO PRN (23:21)
[2017-06-29 02:49] LABS: Cholesterol 175 mg/dL (<200); HDL Cholesterol 28 mg/dL (40-60); LDL Cholesterol,Calculated 89 mg/dL (0-99); Triglycerides 289 mg/dL (<150)
[2017-06-29 03:16] LABS: Creatine Kinase MB 1.8 ng/mL (0.0-2.4); Troponin I 0.019 ng/mL (0.000-0.034)
[2017-06-29] MEDS ORDERED: METOPROLOL TARTRATE 50 MG TAB PO SCH (09:00)
[2017-06-29] MEDS ORDERED: ATORVASTATIN 40 MG TAB PO SCH (09:00)
[2017-06-29] MEDS ORDERED: CLOPIDOGREL 75 MG TAB PO SCH (09:00)
[2017-06-29] MEDS ORDERED: ASPIRIN 81 MG PO SCH (09:00)
[2017-06-29] MEDS ORDERED: ASPIRIN 325 MG TAB PO SCH (09:00)
[2017-06-29] MEDS: PANTOPRAZOLE 40 MG/10 ML VIAL IVP SCH (10:11)
--- NOTE | 2017-06-29 10:50 | P.CRDCN ---
History of Present Illness Consult date: 06/29/17 Consult reason: sycope History of present illness: Mr. Bland is a pleasnt 77-year-old male past medical history significant for coronary artery disease s/p 3-vessel bypass grafting 11/2016, aortic aneurysm s/p stent graft placement, hypertension, dylipidemia and former tobacco abuse. We have been asked to see him in consultation for complaints of weakness and pre-syncope. He states he has been going to cardiac rehab 3-days per week since his bypass surgery. Yesterday he pulled into the parking lot and began feeling very lightheaded, nauseated and diaphoretic. This feeling persisted for approximately 20 minutes when he decided to call his daughter to come pick him up. She was unable to come so he called EMS. The feelings persisted until after he arrived in ED and then he states they went away on their own with no specific alleviating factors. Blood pressure in ED went down to 90's systolic which improved after fluid boluses. He denies symptoms of chest pain, shortness of breath, palpitations of vomiting. He denies actual LOC however, per ED note he did fall after standing out of his car. He does also c/ o decreased appetite lately secondary to acute diarrhea and viral like symptoms. At the time of my exam he is sitting up in bed in no acute distress. Telemetry tracings have been unremarkable overnight. EKG reveals sinus mechanism with heart rate 58 with right bundle branch block pattern with no acute ST or T-wave abnormalities. Chest xray negative for an acute cardiopulmonary process. CTA negative for PE. Laboratory data reveiwed, hgb 13.4, plt 184, d-dimer 1.86, potassium 5.1, magnesium 1.9, BUN/creatinine 25/1.5, cardiac enzymes negative x3, LDL 89, HDL 28. Current cardiac medications include pravastatin 10 mg daily, metoprolol titrate 50 mg twice a day, Plavix 75 mg daily and aspirin 81 mg daily. He follows with Dr. Worthy out of [place]. Most recent echocardiogram performed 03/2016 reveals preserved LV systolic function with EF 55%, mild aortic regurgitation with mild aortic stenosis, mild MR and calcified mitral valve. Records from bypass were obtained and reviewed, reveals in November 2016 he underwent triple vessel bypass with LEAL-LAD, SVG-diagonal and SVG-OM. Review of Systems At the time of my exam: CONSTITUTIONAL: Denies fever. Denies chills. EYES: Denies blurred vision. Denies vision changes. Denies eye pain. EARS, NOSE, MOUTH & THROAT: Denies headache. Denies sore throat. Denies ear pain. CARDIOVASCULAR: Denies chest pain. Denies shortness of breath. Denies orthopnea. Denies PND. Denies palpitations. RESPIRATORY: Denies cough. GASTROINTESTINAL: Denies abdominal pain. Denies diarrhea. Denies constipation. Denies nausea. Denies vomiting. MUSCULOSKELETAL: Denies myalgias. INTEGUMENTARY: Denies pruitis. Denies rash. NEUROLOGIC: Denies numbness. Denies tingling. Denies weakness. PSYCHIATRIC: Denies anxiety. Denies depression. ENDOCRINE: Denies fatigue. Denies weight change. Denies polydipsia. Denies polyurina. GENITOURINARY: Denies burning, hematuria or urgency with micturation. HEMATOLOGIC: Denies history of anemia. Denies bleeding. Past Medical History Past Medical History: Hyperlipidemia, Hypertension History of Any Multi-Drug Resistant Organisms: None Reported Additional Past Surgical History / Comment(s): aortic aneursym and bypass surgery 11/29 Past Anesthesia/Blood Transfusion Reactions: No Reported Reaction Smoking Status: Former smoker - Past Family History Father Additional Family Medical History / Comment(s): heart issues Mother Additional Family Medical History / Comment(s): of an anyrusm Medications and Allergies Home Medications Medication Instructions Recorded Confirmed Type Clopidogrel [Plavix] 75 mg PO DAILY 07/14/16 06/28/17 History Aspirin EC [Ecotrin Low Dose] 81 mg PO DAILY 06/28/17 06/28/17 History Metoprolol Tartrate [Lopressor] 50 mg PO BID 06/28/17 06/28/17 History Pravastatin Sodium [Pravachol] 10 mg PO HS 06/28/17 06/28/17 History Allergies Allergy/AdvReac Type Severity Reaction Status Date / Time No Known Allergies Allergy Verified 06/28/17 23:02 Physical Exam Vitals: Vital Signs Temp Pulse Pulse Resp BP BP Pulse Ox 06/29/17 08:00 98.1 F 81 16 126/62 93 L 06/29/17 04:00 16 06/29/17 03:44 98.3 F 87 16 116/56 92 L 06/29/17 00:00 16 06/28/17 23:02 97.6 F 78 16 144/57 93 L 06/28/17 22:44 97.8 F 78 18 116/56 93 L 06/28/17 20:13 68 16 97/43 94 L 06/28/17 17:00 83 16 128/60 96 06/28/17 16:14 68 16 124/58 97 06/28/17 14:21 58 L 20 99/60 90 L 06/28/17 14:11 98 F 58 L 16 121/51 97 Intake and Output 06/28/17 06/29/17 06/29/17 22:59 06:59 14:59 Other: # Voids 1 Weight 98.4 kg Blood pressure 126/62 heart rate 81 afebrile GENERAL: This is a 77-year-old male in no apparent distress at the time of my examination. HEENT: Head is atraumatic, normocephalic. Pupils are equal, round. Sclerae anicteric. Conjunctivae are clear. Mucous membranes of the mouth are moist. Neck is supple. There is no jugular venous distention. No carotid bruit is heard. LUNGS: Clear to auscultation no wheezes, rales or rhonchi. No chest wall tenderness is noted on palpation or with deep breathing. Diminished. HEART: Regular rate and rhythm with systolic ejection murmur at the base, no rubs or gallops. S1 and S2 heard. ABDOMEN: Soft, nontender. Bowel sounds are heard. No organomegaly noted. EXTREMITIES: No evidence of peripheral edema and no calf tenderness noted. VASCULAR: Radial and dorsalis pedis pulses palpated, no evidence of clubbing. NEUROLOGIC: Patient is awake, alert and oriented x3. Results 06/28/17 14:17 06/28/17 14:17 Cardiac Enzymes 06/28/17 06/28/17 06/28/17 Range/Units 14:17 14:17 20:02 AST 22 (17-59) U/L CK-MB (CK-2) 1.2 1.5 (0.0-2.4) ng/mL Troponin I 0.022 0.013 (0.000-0.034) ng/mL 06/29/17 Range/Units 02:10 AST (17-59) U/L CK-MB (CK-2) 1.8 (0.0-2.4) ng/mL Troponin I 0.019 (0.000-0.034) ng/mL Coagulation 06/28/17 Range/Units 14:17 PT 10.3 (9.0-12.0) sec APTT 22.1 (22.0-30.0) sec Lipids 06/29/17 Range/Units 02:10 Triglycerides 289 H (<150) mg/dL Cholesterol 175 (<200) mg/dL HDL Cholesterol 28 L (40-60) mg/dL CBC 06/28/17 Range/Units 14:17 WBC 8.6 (3.8-10.6) k/uL RBC 4.02 L (4.30-5.90) m/uL Hgb 13.4 (13.0-17.5) gm/dL Hct 41.7 (39.0-53.0) % Plt Count 184 (150-450) k/uL Comprehensive Metabolic Panel 06/28/17 Range/Units 14:17 Sodium 138 (137-145) mmol/L Potassium 5.1 (3.5-5.1) mmol/L Chloride 103 (98-107) mmol/L Carbon Dioxide 26 (22-30) mmol/L BUN 25 H (9-20) mg/dL Creatinine 1.50 H (0.66-1.25) mg/dL Glucose 167 H (74-99) mg/dL Calcium 8.7 (8.4-10.2) mg/dL AST 22 (17-59) U/L ALT 17 L (21-72) U/L Alkaline Phosphatase 47 (38-126) U/L Total Protein 6.6 (6.3-8.2) g/dL Albumin 3.8 (3.5-5.0) g/dL Current Medications Generic Name Dose Route Start Last Admin Trade Name Freq PRN Reason Stop Dose Admin Aspirin 325 mg 06/29/17 09:00 Aspirin PO DAILY KYLAH Loratadine 10 mg 06/28/17 23:21 Claritin PO DAILY PRN Allergy Symptoms Miscellaneous Information 1 each 06/28/17 15:19 06/28/17 16:01 Rx Info: Iv Contrast Was Given MISCELLANE 06/30/17 15:19 1 each DAILY PRN Administration Per Protocol Nitroglycerin 0.4 mg 06/28/17 16:20 Nitrostat SUBLINGUAL Q5M PRN Chest Pain Ondansetron HCl 4 mg 06/28/17 16:21 Zofran IVP Q6HR PRN Nausea And Vomiting Pantoprazole Sodium 40 mg 06/28/17 21:00 06/28/17 21:28 Protonix IVP Not Given BID KYLAH Intake and Output 06/28/17 06/29/17 06/29/17 22:59 06:59 14:59 Other: # Voids 1 Weight 98.4 kg 06/28/17 14:17 06/28/17 14:17 Assessment and Plan Assessment: ASSESSMENT 1. Presyncope, most likely vasovagal secondary to dehydration 2. Known CAD with recent bypass grafting x3 veseels 3. Hypertension 4. Dyslipidemia 5. Former tobacco use 6. Obesity PLAN Obtain 2D echcocardiogram and doppler study to assess cardiac structure and function Obtain orthostatic vital signs. There is no evidence of an acute coronary event, cardiac enzymes are negative with no changes on EKG. His symptoms have resolved completely after some fluid hydration. 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 Thank you kindly for this consultation. Nurse Practitioner note has been reviewed, I agree with a documented findings and plan of care. Patient was seen and examined.
--- NOTE | 2017-06-29 13:13 | ECHOF ---
Referral Reason:cad MEASUREMENTS -------- HEIGHT: 175.3 cm WEIGHT: 98.0 kg BP: 126/62 RVIDd: 3.9 cm (< 3.3) IVSd: 1.1 cm (0.6 - 1.1) LVIDd: 5.0 cm (3.9 - 5.3) LVPWd: 1.4 cm (0.6 - 1.1) IVSs: 1.8 cm LVIDs: 2.8 cm LVPWs: 1.9 cm LAESV Index (A-L): 14.36 ml/m Ao Diam: 3.4 cm (2.0 - 3.7) AV Cusp: 1.5 cm (1.5 - 2.6) LA Diam: 4.1 cm (2.7 - 3.8) MV E Reynaldo: 0.91 m/s MV DecT: 259 ms MV A Reynaldo: 1.26 m/s MV E/A Ratio: 0.72 AV maxP.71 mmHg AV meanP.52 mmHg AR PHT: 418 ms RAP: 5.00 mmHg RVSP: 41.93 mmHg FINDINGS -------- Sinus rhythm. This was a technically difficult study with suboptimal views. The left ventricular size is normal. There is mild concentric left ventricular hypertrophy. Overa ll left ventricular systolic function is normal with, an EF between 55 - 60 %. The right ventricle is mild to moderately enlarged. Normal LA size by volume 22+/-6 ml/m2. The right atrium is normal in size. 4ml of Lumason was utilized for enhancement of images. Aortic valve is trileaflet and is mildly thickened. There is [id number] aortic regurgitation. The aortic pressure half-time by doppler is 418ms. There is mild aortic stenosis present. Peak /mean gradient across the Aortic Valve is 26.71mmHg / 17.52mmHg. The mitral valve leaflets are mildly thickened. Mild mitral regurgitation is present. [id number] tricuspid regurgitation present. There is mild pulmonary hypertension. The right ventricular systolic pressure, as measured by Doppler, is 41.93mmHg. Trace/mild (physiologic) pulmonic regurgitation. The aortic root size is normal. IVC Not well visulized. There is no pericardial effusion. CONCLUSIONS -------- 1. Sinus rhythm. 2. This was a technically difficult study with suboptimal views. 3. The left ventricular size is normal. 4. There is mild concentric left ventricular hypertrophy. 5. Overall left ventricular systolic function is normal with, an EF between 55 - 60 %. 6. The right ventricle is mild to moderately enlarged. 7. Normal LA size by volume 22+/-6 ml/m2. 8. 4ml of Lumason was utilized for enhancement of images. 9. Aortic valve is trileaflet and is mildly thickened. 10. There is [id number]-ukcpxcan aortic regurgitation. 11. The aortic pressure half-time by doppler is 418ms. 12. There is mild aortic stenosis present. 13. Peak/mean gradient across the Aortic Valve is 26.71mmHg / 17.52mmHg. 14. The mitral valve leaflets are mildly thickened. 15. Mild mitral regurgitation is present. 16. [id number]-ah-[id number] tricuspid regurgitation present. 17. There is mild pulmonary hypertension. 18. Trace/mild (physiologic) pulmonic regurgitation. 19. The aortic root size is normal. 20. IVC Not well visulized. 21. There is no pericardial effusion. NURSE DISCHARGE: Dash Coon RDCS
[2017-06-29 15:49] VITALS: BP 136/57; PULSE 81; RESP 18; TEMP 98.1
--- NOTE | 2017-06-29 16:46 | P.HPIM ---
History of Present Illness H&P Date: 06/29/17 Chief Complaint: Near syncope Patient is a 77-year-old male with a past medical history significant for coronary artery disease s/p 3-vessel bypass grafting 11/2016, aortic aneurysm s/ p stent graft placement, hypertension, dylipidemia and former tobacco abuse came to ER with complaints of weakness and pre-syncope. He states he has been going to cardiac rehab 3-days per week since his bypass surgery. Yesterday he pulled into the parking lot and began feeling very lightheaded, nauseated and diaphoretic. This feeling persisted for approximately 20 minutes when he decided to call his daughter to come pick him up. She was unable to come so he called EMS. The feelings persisted until after he arrived in ED and then he states they went away on their own with no specific alleviating factors. Blood pressure in ED went down to 90's systolic which improved after fluid boluses. He denies symptoms of chest pain, shortness of breath, palpitations of vomiting. He denies actual LOC however, per ED note he did fall after standing out of his car. He does also c/o decreased appetite lately secondary to acute diarrhea and viral like symptoms. EKG reveals sinus mechanism with heart rate 58 with right bundle branch block pattern with no acute ST or T-wave abnormalities. Chest xray negative for an acute cardiopulmonary process. D-dimer 1.86, CTA negative for PE. Lactic acid 2.1 Most recent echocardiogram performed 03/2016 reveals preserved LV systolic function with EF 55%, mild aortic regurgitation with mild aortic stenosis, mild MR and calcified mitral valve. Repeat echocardiogram was ordered. Review of Systems Constitutional: Patient denies any fever or chills . No generalized weakness or weight loss. Abdomen: Patient denied nausea vomiting and diarrhea and abdominal pain. Cardiovascular: Patient denies any chest pain or short of breath no palpitations. Respiratory: patient denied any cough is from production. No shortness of breath Neurologic: Dizziness. No weakness Patient denied any numbness or tingling headache. Musculoskeletal: Patient denies any complaints of joint swelling or deformity. Skin: Negative Psychiatric: Negative Endocrine: No heat or cold intolerance. No recent weight gain. Genitourinary: No dysuria or hematuria. All other 14 point ROS negative except the above Past Medical History Past Medical History: Hyperlipidemia, Hypertension History of Any Multi-Drug Resistant Organisms: None Reported Additional Past Surgical History / Comment(s): aortic aneursym and bypass surgery 11/29 Past Anesthesia/Blood Transfusion Reactions: No Reported Reaction Smoking Status: Former smoker - Past Family History Father Additional Family Medical History / Comment(s): heart issues Mother Additional Family Medical History / Comment(s): of an anyrusm Medications and Allergies Home Medications Medication Instructions Recorded Confirmed Type Clopidogrel [Plavix] 75 mg PO DAILY 07/14/16 06/28/17 History Aspirin EC [Ecotrin Low Dose] 81 mg PO DAILY 06/28/17 06/28/17 History Metoprolol Tartrate [Lopressor] 50 mg PO BID 06/28/17 06/28/17 History Pravastatin Sodium [Pravachol] 10 mg PO HS 06/28/17 06/28/17 History Allergies Allergy/AdvReac Type Severity Reaction Status Date / Time No Known Allergies Allergy Verified 06/28/17 23:02 Physical Exam Vitals: Vital Signs Temp Pulse Pulse Resp BP BP Pulse Ox 06/29/17 11:27 97.4 F L 90 16 131/60 92 L 06/29/17 08:00 98.1 F 81 16 126/62 93 L 06/29/17 04:00 16 06/29/17 03:44 98.3 F 87 16 116/56 92 L 06/29/17 00:00 16 06/28/17 23:02 97.6 F 78 16 144/57 93 L 06/28/17 22:44 97.8 F 78 18 116/56 93 L 06/28/17 20:13 68 16 97/43 94 L 06/28/17 17:00 83 16 128/60 96 06/28/17 16:14 68 16 124/58 97 06/28/17 14:21 58 L 20 99/60 90 L 06/28/17 14:11 98 F 58 L 16 121/51 97 Intake and Output 06/28/17 06/29/17 06/29/17 22:59 06:59 14:59 Intake Total 236 Balance 236 Intake: Oral 236 Other: # Voids 1 Weight 98.4 kg PHYSICAL EXAMINATION: Patient is lying in the bed comfortably, no acute distress, awake alert and oriented.. HEENT: Normocephalic. Neck is supple. Pupils reactive. Nostrils clear. Oral cavity is moist. Ears reveal no drainage. Neck reveals no JVD, carotid bruits, or thyromegaly. CHEST EXAMINATION: Trachea is central. Symmetrical expansion. Lung alberto clear to auscultation and percussion. CARDIAC: Normal S1, S2 with no gallops. No murmurs ABDOMEN: Soft. Bowel sounds normal. No organomegaly. No abdominal bruits. Extremities: reveal no edema. No clubbing or cyanosis Neurologically awake, alert, oriented x3 with well-coordinated movements. No focal deficits noted Skin: No rash or skin lesions. Psychiatric: Coperative. Nonsuicidal Musculoskeletal: No joint swelling or deformity. Normal range of motion. Results CBC & Chem 7: 06/28/17 14:17 06/28/17 14:17 Labs: Abnormal Lab Results - Last 24 Hours (Table) 06/28/17 06/28/17 06/28/17 Range/Units 14:15 14:17 14:17 RBC 4.02 L (4.30-5.90) m/uL MCV 103.8 H (80.0-100.0) fL D-Dimer (<0.60) mg/L FEU BUN (9-20) mg/dL Creatinine (0.66-1.25) mg/dL Glucose (74-99) mg/dL POC Glucose (mg/dL) 160 H (75-99) mg/dL Plasma Lactic Acid Keshav (0.7-2.0) mmol/L ALT (21-72) U/L Total Creatine Kinase 46 L (55-170) U/L Triglycerides (<150) mg/dL HDL Cholesterol (40-60) mg/dL 06/28/17 06/28/17 06/28/17 Range/Units 14:17 14:17 14:17 RBC (4.30-5.90) m/uL MCV (80.0-100.0) fL D-Dimer 1.86 H (<0.60) mg/L FEU BUN 25 H (9-20) mg/dL Creatinine 1.50 H (0.66-1.25) mg/dL Glucose 167 H (74-99) mg/dL POC Glucose (mg/dL) (75-99) mg/dL Plasma Lactic Acid Keshav 2.1 H* (0.7-2.0) mmol/L ALT 17 L (21-72) U/L Total Creatine Kinase (55-170) U/L Triglycerides (<150) mg/dL HDL Cholesterol (40-60) mg/dL 06/28/17 06/29/17 Range/Units 20:02 02:10 RBC (4.30-5.90) m/uL MCV (80.0-100.0) fL D-Dimer (<0.60) mg/L FEU BUN (9-20) mg/dL Creatinine (0.66-1.25) mg/dL Glucose (74-99) mg/dL POC Glucose (mg/dL) (75-99) mg/dL Plasma Lactic Acid Keshav (0.7-2.0) mmol/L ALT (21-72) U/L Total Creatine Kinase 50 L (55-170) U/L Triglycerides 289 H (<150) mg/dL HDL Cholesterol 28 L (40-60) mg/dL Thrombosis Risk Factor Assmnt - DVT/VTE Prophylaxis DVT/VTE Prophylaxis: Pharmacologic Prophylaxis ordered - Choose All That Apply Each Risk Factor Represents 3 Points: Age 75 years or older Thrombosis Risk Factor Assessment Total Risk Factor Score: 3 Thrombosis Risk Factor Assessment Level: Moderate Risk Assessment and Plan Assessment: Near syncope likely due to hypotension and volume depletion. Possible vasovagal Mild lactic acidosis Acute kidney injury likely prerenal Coronary artery disease with history of CABG in November 2016 Hypertension Hyperlipidemia Obesity with BMI 32.0 history of smoking Plan: Patient was given fluid bolus in the ER with improvement in dizziness. Continue with serial EKGs and troponins and telemetry monitoring and repeat 2-D echocardiogram was ordered. Cardiology is following. Further recommendations based on clinical course.. Time with Patient: Greater than 30
--- NOTE | 2017-06-29 16:51 | P.DS ---
Providers Date of admission: 06/28/17 16:20 Expected date of discharge: 06/29/17 Attending physician: Reinaldo Friedman Consults: 06/28/17 22:19 Consult Physician Routine Consulting Provider: Lico White Consult Reason/Comments: syncope Do you want consulting provider notified?: Yes, Notify in am [facility] Course: Discharge diagnosis Near syncope likely due to hypotension and volume depletion. Possible vasovagal. Dizziness resolved. Mild lactic acidosis Acute kidney injury likely prerenal Coronary artery disease with history of CABG in November 2016 Hypertension Hyperlipidemia Obesity with BMI 32.0 history of smoking Hospital course Patient is a 77-year-old male with a past medical history significant for coronary artery disease s/p 3-vessel bypass grafting 11/2016, aortic aneurysm s/ p stent graft placement, hypertension, dylipidemia and former tobacco abuse came to ER with complaints of weakness and pre-syncope. He states he has been going to cardiac rehab 3-days per week since his bypass surgery. Yesterday he pulled into the parking lot and began feeling very lightheaded, nauseated and diaphoretic. This feeling persisted for approximately 20 minutes when he decided to call his daughter to come pick him up. She was unable to come so he called EMS. The feelings persisted until after he arrived in ED and then he states they went away on their own with no specific alleviating factors. Blood pressure in ED went down to 90's systolic which improved after fluid boluses. He denies symptoms of chest pain, shortness of breath, palpitations of vomiting. He denies actual LOC however, per ED note he did fall after standing out of his car. He does also c/o decreased appetite lately secondary to acute diarrhea and viral like symptoms. EKG reveals sinus mechanism with heart rate 58 with right bundle branch block pattern with no acute ST or T-wave abnormalities. Chest xray negative for an acute cardiopulmonary process. D-dimer 1.86, CTA negative for PE. Lactic acid 2.1 Most recent echocardiogram performed 03/2016 reveals preserved LV systolic function with EF 55%, mild aortic regurgitation with mild aortic stenosis, mild MR and calcified mitral valve. Repeat echocardiogram was ordered. Patient was given fluid bolus in the ER with improvement in dizziness. Continue with serial EKGs and troponins and telemetry monitoring and repeat 2-D echocardiogram was ordered. Lactic acidosis resolved and patient currently denied any dizziness or lightheadedness. Cardiology has seen the patient. Repeat echocardiogram showed normal ejection fraction and no new changes. Otherwise patient is stable to be discharged home. Discharge physical examination was done and vitals reviewed. Patient Condition at Discharge: Undetermined Plan - Discharge Summary New Discharge Prescriptions: Continue Clopidogrel [Plavix] 75 mg PO DAILY Metoprolol Tartrate [Lopressor] 50 mg PO BID Aspirin EC [Ecotrin Low Dose] 81 mg PO DAILY Pravastatin Sodium [Pravachol] 10 mg PO HS Discharge Medication List Clopidogrel [Plavix] 75 mg PO DAILY 07/14/16 [History] Aspirin EC [Ecotrin Low Dose] 81 mg PO DAILY 06/28/17 [History] Metoprolol Tartrate [Lopressor] 50 mg PO BID 06/28/17 [History] Pravastatin Sodium [Pravachol] 10 mg PO HS 06/28/17 [History] Follow up Appointment(s)/Referral(s): Tye Dowd DO [Primary Care Provider] - 1-2 days Patient Instructions/Handouts: Syncope (GEN) Care Plan Goals (MU): Please follow up with primary skelp processor. Discharge Disposition: HOME SELF-CARE
== END 2017-06-29 16:56 | disposition home or self-care (01) ==
LOC: EC 14:09 → 3OBS 16:20
PROVIDERS: ADMIT Hospitalist; ATTEND Hospitalist
DX: R55 Syncope and collapse (principal); I95.9 Hypotension, unspecified; R61 Generalized hyperhidrosis; E86.9 Volume depletion, unspecified; E87.2 Acidosis; N17.9 Acute kidney failure, unspecified; I25.10 Atherosclerotic heart disease of native coronary artery without angina pectoris; Z95.1 Presence of aortocoronary bypass graft; I10 Essential (primary) hypertension; E78.5 Hyperlipidemia, unspecified; E66.9 Obesity, unspecified; Z68.32 Body mass index [BMI] 32.0-32.9, adult; Z87.891 Personal history of nicotine dependence; Z79.899 Other long term (current) drug therapy; Z79.82 Long term (current) use of aspirin; Z79.02 Long term (current) use of antithrombotics/antiplatelets; Z95.818 Presence of other cardiac implants and grafts
CPT/HCPCS: 96361 ×12; 93005 ×2; 96374; 96375; 99285; 36415; 85379; 83880; 80061; 80053; 82550 ×2; 82553 ×2; 83605; 83735; 84100; 84484 ×2; 85025; 85610; 85730; 71046; 71275; G0378 ×2; C8929; Q9967; J2405; C9113; Q9950; 93306

== ENCOUNTER → 2019-01-01 | Outpatient (CLI) | payer MEDICARE, OTHER ==
[2019-01-01 14:14] LABS: African American GFR (CKD) 45 (>60 ml/min/1.73 sqM); Anion Gap 11 mmol/L; Blood Urea Nitrogen 27 mg/dL (9-20); Calcium 9.3 mg/dL (8.4-10.2); Carbon Dioxide 24 mmol/L (22-30); Chloride 104 mmol/L (98-107); Glucose 168 mg/dL (74-99); Sodium 139 mmol/L (137-145)
[2019-01-01 14:23] LABS: Potassium 5.8 mmol/L (3.5-5.1)
== END | disposition home or self-care (01) ==
LOC: LABWHC1 13:33
PROVIDERS: ATTEND Internal Medicine
DX: E87.5 Hyperkalemia (principal); N18.3 Chronic kidney disease, stage 3 (moderate)
CPT/HCPCS: 36415; 80048

== ENCOUNTER → 2019-03-16 | Outpatient (CLI) | payer MEDICARE, OTHER ==
[2019-03-16 15:04] LABS: Potassium 5.6 mmol/L (3.5-5.1)
[2019-03-16 15:18] LABS: Basophils # (A) 0.1 k/uL (0-0.2); Basophils % (A) 1 %; Eosinophils # (A) 0.2 k/uL (0-0.7); Eosinophils % (A) 2 %; HCT 44.7 % (39.0-53.0); HGB 14.4 gm/dL (13.0-17.5); Lymphocytes # (A) 1.1 k/uL (1.0-4.8); Lymphocytes % (A) 13 %; MCH 33.7 pg (25.0-35.0); MCHC 32.2 g/dL (31.0-37.0); MCV 104.5 fL (80.0-100.0); Macrocytosis Slight; Mean Platelet Volume 8.2; Monocytes # (A) 0.5 k/uL (0-1.0); Monocytes % (A) 6 %; Neutrophils # (A) 6.8 k/uL (1.3-7.7); Neutrophils % (A) 77 %; Platelet Count 205 k/uL (150-450); RBC 4.28 m/uL (4.30-5.90); RDW 12.7 % (11.5-15.5); WBC 8.8 k/uL (3.8-10.6)
== END | disposition home or self-care (01) ==
LOC: LABPAT 13:49
PROVIDERS: ATTEND Surgery
DX: Z01.812 Encounter for preprocedural laboratory examination (principal); I74.3 Embolism and thrombosis of arteries of the lower extremities
CPT/HCPCS: 36415; 80051; 82565; 84520; 85025

== ENCOUNTER → 2019-03-20 | Day surgery (SDC) | payer MEDICARE, OTHER ==
[2019-03-15 13:53] VITALS: BMI 34.3
[~2019-03-20] MED LIST changes: -ALPRAZolam 0.5 MG TAB PO PRN; -ATORVASTATIN 80 MG TAB PO STA; +IOPAMIDOL-300 100ML BTL INJ ONE; +IOPAMIDOL-370 125ML BTL INJ ONE; +IV FLUID CONTINUATION 1,000 ML IV ONE; +LIDOCAINE 1% INJ 10MG/ML (20 ML MDV) SQ ONE; +MIDAZOLAM 2 MG/2 ML VIAL IV ONE; -NITROGLYCERIN SL TABS 0.4 MG TAB SUBLINGUAL PRN; +SODIUM CHLORIDE 0.9% 1,000 ML IV ONE; +fentaNYL (PF) 50 MCG/ML 2 ML AMP IV ONE
[2019-03-20 06:44] VITALS: TEMP 97.9
--- NOTE | 2019-03-20 08:35 | P.OP ---
Description of Procedure: Indication for procedure: 78-year-old gentleman with history of disabling claudication and previous left common femoral artery endarterectomy with superficial femoral artery remote endarterectomy and stenting of the distal SFA presented to the office with complaints of lower extremity worsening pain with ambulation especially on the right and development of rest pain over the last couple weeks. Arterial Doppler was obtained demonstrating diminished ABIs from previous with a drop of 0.3 bilaterally. He presents today for aortogram with runoff. Preoperative diagnosis: 1. Disabling lower extremity claudication with rest pain [place] classification 4 Postop diagnosis: 1. Right superficial femoral artery BLOCK SAW OPERATOR with reconstitution at the above-knee popliteal artery. 2. Left superficial femoral artery BLOCK SAW OPERATOR with reconstitution at the above-knee popliteal artery just distal to the existing stent. 3. Three-vessel runoff bilateral lower extremities. Procedure: Aortogram with bilateral lower extremity runoffs via left brachial artery access under ultrasound guidance Surgeon: Juana Anesthesia: Moderate sedation times 25 minutes Estimated blood loss: Less than 5 mL Complications: None Condition: Stable Findings: Aorta: Patent aorta with patent graft without any evidence of endoleak. Iliacs: Bilateral common iliac, internal iliac and external iliac arteries are patent without any significant stenosis or atherosclerotic disease. Femorals: Bilateral femoral arteries are patent with some after stenotic disease noted on the right. Profundus vessels bilaterally are patent without stenosis. Bilateral superficial femoral arteries are occluded just after the takeoff on the right and flush occlusion noted on the left. Reconstitution is noted at the right above-knee popliteal and the left above-knee popliteal just distal to existing stent which is occluded. Popliteal: Bilateral popliteal arteries are patent without any significant atherosclerotic disease or stenosis. Tibials: Three-vessel runoff noted without any significant stenosis. Operative narrative: After written informed consent was obtained the patient all risks benefits competitions were described the patient is brought to the Head Sawyer and laid in a supine position. The area of the left arm was prepped and draped in the usual sterile fashion. Local anesthesia with moderate sedation was performed with continuous pulse ox monitoring and EKG monitoring. Utilizing ultrasound the left brachial artery was visualized and shown to be patent without any significant plaque. Utilizing a multipurpose needle under ultrasound guidance the artery was accessed. Guidewire was placed followed by 5-Thai sheath. 035 Glidewire was then placed into the aortic arch followed by pigtail catheter and wire was placed into the descending thoracic aorta down to the abdominal aorta into the existing aortic graft. Angiogram was then obtained of the aorta. Catheter was then placed at the bifurcation of the graft and lower extremity runoffs were obtained. Once completed all guidewires, catheters and sheaths were removed and pressure was placed for hemostasis. Patient tolerated procedure well was sent to PACU for recovery Plan - Discharge Summary Discharge Rx Participant: No New Discharge Prescriptions: No Action Clopidogrel [Plavix] 75 mg PO DAILY Metoprolol Tartrate [Lopressor] 100 mg PO BID Aspirin EC [Ecotrin Low Dose] 81 mg PO DAILY Pravastatin Sodium [Pravachol] 20 mg PO HS Albuterol Sulfate [Ventolin HFA] 1 - 2 puff INHALATION Q6H PRN PRN Reason: Wheezing Lisinopril 20 mg PO DAILY Discharge Medication List Clopidogrel [Plavix] 75 mg PO DAILY 07/14/16 [History] Aspirin EC [Ecotrin Low Dose] 81 mg PO DAILY 06/28/17 [History] Metoprolol Tartrate [Lopressor] 100 mg PO BID 06/28/17 [History] Pravastatin Sodium [Pravachol] 20 mg PO HS 06/28/17 [History] Albuterol Sulfate [Ventolin HFA] 1 - 2 puff INHALATION Q6H PRN 03/15/19 [History] Lisinopril 20 mg PO DAILY 03/15/19 [History]
--- NOTE | 2019-03-20 09:54 | IR ---
Fluoroscopy HISTORY: Pain in right leg 1.7 minutes fluoroscopy time supplied to the referring clinician. 65 intraoperative C-arm images doc ument the procedure. See dictated report from vascular surgery.
[2019-03-20 10:42] VITALS: BP 169/75; PULSE 68; RESP 18
== END | disposition home or self-care (01) ==
LOC: CATHCVL 05:52
PROVIDERS: ATTEND Surgery
DX: I70.223 Atherosclerosis of native arteries of extremities with rest pain, bilateral legs (principal); I70.92 Chronic total occlusion of artery of the extremities; T82.856A Stenosis of peripheral vascular stent, initial encounter; Z95.1 Presence of aortocoronary bypass graft; Z84.89 Family history of other specified conditions; Z79.02 Long term (current) use of antithrombotics/antiplatelets; Z79.82 Long term (current) use of aspirin; Z79.891 Long term (current) use of opiate analgesic; Z79.899 Other long term (current) drug therapy
CPT/HCPCS: 36200; 75625; 75716; C1769 ×5; C1894; J2250; J2001; J3010; Q9967

== ENCOUNTER → 2020-01-17 | Outpatient (CLI) | payer MEDICARE, OTHER ==
[2020-01-17 13:08] LABS: African American GFR (CKD) 50 (>60 ml/min/1.73 sqM); Anion Gap 8 mmol/L; Blood Urea Nitrogen 25 mg/dL (9-20); Calcium 8.8 mg/dL (8.4-10.2); Carbon Dioxide 27 mmol/L (22-30); Chloride 102 mmol/L (98-107); Glucose 128 mg/dL (74-99); Non-African American GFR(CKD) 43 (>60 ml/min/1.73 sqM); Potassium 5.5 mmol/L (3.5-5.1); Sodium 137 mmol/L (137-145)
== END | disposition home or self-care (01) ==
LOC: LABWHC1 10:36
PROVIDERS: ATTEND Internal Medicine
DX: N18.3 Chronic kidney disease, stage 3 (moderate) (principal); E87.5 Hyperkalemia
CPT/HCPCS: 36415; 80048

== ENCOUNTER 2020-04-24 10:53 | Inpatient (IN) | payer MEDICARE, OTHER ==
[2020-04-24] MEDS ORDERED: SODIUM CHLORIDE 0.9% 1,000 ML IV STA ×2 (11:27)
[2020-04-24 12:19] LABS: Basophils # (A) 0.1 k/uL (0-0.2); Basophils % (A) 1 %; Eosinophils % (A) 0 %; HCT 52.7 % (39.0-53.0); HGB 18.4 gm/dL (13.0-17.5); Lymphocytes # (A) 0.4 k/uL (1.0-4.8); Lymphocytes % (A) 4 %; MCH 35.2 pg (25.0-35.0); MCHC 34.9 g/dL (31.0-37.0); Mean Platelet Volume 8.3; Monocytes # (A) 0.6 k/uL (0-1.0); Monocytes % (A) 7 %; Neutrophils % (A) 86 %; Platelet Count 119 k/uL (150-450); RBC 5.22 m/uL (4.30-5.90); RDW 13.2 % (11.5-15.5); WBC 8.1 k/uL (3.8-10.6)
--- NOTE | 2020-04-24 12:27 | XR ---
EXAMINATION TYPE: XR chest 1V portable DATE OF EXAM: 04/24/2020 COMPARISON: 06/28/2017 INDICATION: Suspected Covid pneumonia, cough, congestion TECHNIQUE: Single frontal view of the chest is obtained. FINDINGS: The heart size is mildly prominent. The pulmonary vasculature is normal. Mild left lower lobe subsegmental atelectasis or infiltrate is present. Atypical pneumonia should be considered. Milder right middle lobe infiltrate may be present IMPRESSION: 1. Bibasilar nonspecific infiltrates greater on the left. Correlate for subsegmental atelectasis and atypical pneumonia.
[2020-04-24 12:33] LABS: Albumin 4.2 g/dL (3.5-5.0); C Reactive Protein 86.8 mg/L (<10.0); Calcium 8.7 mg/dL (8.4-10.2); Magnesium 2.2 mg/dL (1.6-2.3); Potassium 5.5 mmol/L (3.5-5.1); Total Bilirubin 1.2 mg/dL (0.2-1.3); Total Protein 7.7 g/dL (6.3-8.2)
[2020-04-24 12:38] LABS: Partial Thromboplastin Time 27.9 sec (22.0-30.0); Prothrombin Time 10.2 sec (9.0-12.0)
[2020-04-24 12:43] LABS: D-Dimer 1.82 mg/L FEU (<0.60)
[2020-04-24 13:47] LABS: Appearance,Urine Clear (Clear); Bilirubin,Urine Negative (Negative); Blood,Urine Trace (Negative); Color,Urine Yellow; Glucose,Urine (UA) 1+ (Negative); Ketones,Urine Trace (Negative); Leukocyte Esterase,Urine Negative (Negative); Mucus,Urine Rare /hpf; Nitrite,Urine Negative (Negative); PH, Urine 5.5 (5.0-8.0); Protein,Urine 1+ (Negative); RBC,Urine 1 /hpf (0-5); Squamous Epithelial Cell,Urine <1 /hpf (0-4); Urobilinogen,Urine <2.0 mg/dL (<2.0); WBC,Urine 1 /hpf (0-5)
--- NOTE | 2020-04-24 13:55 | ED ---
Weakness HPI - General Chief complaint: Weakness Stated complaint: Possible covid, weakness Time Seen by Provider: 04/24/20 10:53 Source: patient, EMS, RN notes reviewed, old records reviewed Mode of arrival: EMS Limitations: no limitations - History of Present Illness Initial comments: This is a 79-year-old male who presented with complaints of generalized weakness feeling tired decreased oral intake some loose stool he hasn't been feeling well since about 10 days ago. He lost the patient smelled that time. No overt fevers chills sweats no cough just is generally doesn't feel well specific complaints or modifying factors MD Complaint: generalized weakness - Related Data Home Medications Medication Instructions Recorded Confirmed Clopidogrel [Plavix] 75 mg PO DAILY 07/14/16 04/24/20 Metoprolol Succinate (ER) [Toprol 100 mg PO DAILY 04/24/20 04/24/20 Xl] Tamsulosin [Flomax] 0.4 mg PO DAILY 04/24/20 04/24/20 lisinopriL [Zestril] 10 mg PO DAILY 04/24/20 04/24/20 Allergies Allergy/AdvReac Type Severity Reaction Status Date / Time pravastatin AdvReac Memory Verified 04/24/20 12:25 Issues Review of Systems ROS Statement: Those systems with pertinent positive or pertinent negative responses have been documented in the HPI. ROS Other: All systems not noted in ROS Statement are negative. Past Medical History Past Medical History: COPD, Hyperlipidemia, Hypertension, Vascular Disorder History of Any Multi-Drug Resistant Organisms: None Reported Past Surgical History: Coronary Bypass/CABG Additional Past Surgical History / Comment(s): aortic aneursym and bypass surgery 11/29 Past Anesthesia/Blood Transfusion Reactions: No Reported Reaction Past Psychological History: No Psychological Hx Reported Smoking Status: Former smoker Past Alcohol Use History: Rare Past Drug Use History: None Reported - Past Family History Father Additional Family Medical History / Comment(s): heart issues Mother Additional Family Medical History / Comment(s): of an aneurysm. General Exam Limitations: no limitations Course Vital Signs 04/24/20 04/24/20 10:56 13:30 Temperature 98.2 F Pulse Rate 108 H 100 Respiratory 18 20 Rate Blood Pressure 145/65 152/71 O2 Sat by Pulse 98 99 Oximetry - Reevaluation(s) Reevaluation #1: 12/10/20 14:41 Reevaluation patient reveals no change in his status. EKG Findings - EKG Results: EKG: interpreted by ERMD, sinus rhythm (Sinus tachycardia 108. Interval 174 QRS duration 138 daily since QTC 354/474 right bundle-branch block left inferior changes also anterior changes poor R-wave progression) Medical Decision Making - Medical Decision Making I did discuss findings with the patient as well as with Dr. Ferreira, the patient will be admitted for inpatient treatment and care - Lab Data Result diagrams: 04/24/20 12:04/24/20 12:06 Lab Results 04/24/20 04/24/20 04/24/20 Range/Units 12: 12: 12:06 WBC 8.1 (3.8-10.6) k/uL RBC 5.22 (4.30-5.90) m/uL Hgb 18.4 H (13.0-17.5) gm/dL Hct 52.7 (39.0-53.0) % MCV 101.0 H (80.0-100.0) fL MCH 35.2 H (25.0-35.0) pg MCHC 34.9 (31.0-37.0) g/dL RDW 13.2 (11.5-15.5) % Plt Count 119 L (150-450) k/uL MPV 8.3 Neutrophils % 86 % Lymphocytes % 4 % Monocytes % 7 % Eosinophils % 0 % Basophils % 1 % Neutrophils # 7.0 (1.3-7.7) k/uL Lymphocytes # 0.4 L (1.0-4.8) k/uL Monocytes # 0.6 (0-1.0) k/uL Eosinophils # 0.0 (0-0.7) k/uL Basophils # 0.1 (0-0.2) k/uL PT 10.2 (9.0-12.0) sec INR 1.0 (<1.2) APTT 27.9 (22.0-30.0) sec D-Dimer 1.82 H (<0.60) mg/L FEU Sodium 132 L (137-145) mmol/L Potassium 5.5 H (3.5-5.1) mmol/L Chloride 97 L (98-107) mmol/L Carbon Dioxide 26 (22-30) mmol/L Anion Gap 9 mmol/L BUN 34 H (9-20) mg/dL Creatinine 1.70 H (0.66-1.25) mg/dL Est GFR (CKD-EPI)AfAm 43 (>60 ml/min/1.73 sqM) Est GFR (CKD-EPI)NonAf 37 (>60 ml/min/1.73 sqM) Glucose 188 H (74-99) mg/dL Calcium 8.7 (8.4-10.2) mg/dL Magnesium 2.2 (1.6-2.3) mg/dL Total Bilirubin 1.2 (0.2-1.3) mg/dL AST 36 (17-59) U/L ALT 18 (4-49) U/L Alkaline Phosphatase 62 (38-126) U/L Lactate Dehydrogenase 769 H (313-618) U/L C-Reactive Protein 86.8 H (<10.0) mg/L Total Protein 7.7 (6.3-8.2) g/dL Albumin 4.2 (3.5-5.0) g/dL Urine Color Urine Appearance (Clear) Urine pH (5.0-8.0) Ur Specific Morrill (1.001-1.035) Urine Protein (Negative) Urine Glucose (UA) (Negative) Urine Ketones (Negative) Urine Blood (Negative) Urine Nitrite (Negative) Urine Bilirubin (Negative) Urine Urobilinogen (<2.0) mg/dL Ur Leukocyte Esterase (Negative) Urine RBC (0-5) /hpf Urine WBC (0-5) /hpf Ur Squamous Epith Cells (0-4) /hpf Urine Mucus (None) /hpf Coronavirus (PCR) (Not Detectd) 04/24/20 04/24/20 Range/Units 12:19 13:14 WBC (3.8-10.6) k/uL RBC (4.30-5.90) m/uL Hgb (13.0-17.5) gm/dL Hct (39.0-53.0) % MCV (80.0-100.0) fL MCH (25.0-35.0) pg MCHC (31.0-37.0) g/dL RDW (11.5-15.5) % Plt Count (150-450) k/uL MPV Neutrophils % % Lymphocytes % % Monocytes % % Eosinophils % % Basophils % % Neutrophils # (1.3-7.7) k/uL Lymphocytes # (1.0-4.8) k/uL Monocytes # (0-1.0) k/uL Eosinophils # (0-0.7) k/uL Basophils # (0-0.2) k/uL PT (9.0-12.0) sec INR (<1.2) APTT (22.0-30.0) sec D-Dimer (<0.60) mg/L FEU Sodium (137-145) mmol/L Potassium (3.5-5.1) mmol/L Chloride (98-107) mmol/L Carbon Dioxide (22-30) mmol/L Anion Gap mmol/L BUN (9-20) mg/dL Creatinine (0.66-1.25) mg/dL Est GFR (CKD-EPI)AfAm (>60 ml/min/1.73 sqM) Est GFR (CKD-EPI)NonAf (>60 ml/min/1.73 sqM) Glucose (74-99) mg/dL Calcium (8.4-10.2) mg/dL Magnesium (1.6-2.3) mg/dL Total Bilirubin (0.2-1.3) mg/dL AST (17-59) U/L ALT (4-49) U/L Alkaline Phosphatase (38-126) U/L Lactate Dehydrogenase (313-618) U/L C-Reactive Protein (<10.0) mg/L Total Protein (6.3-8.2) g/dL Albumin (3.5-5.0) g/dL Urine Color Yellow Urine Appearance Clear (Clear) Urine pH 5.5 (5.0-8.0) Ur Specific Morrill 1.020 (1.001-1.035) Urine Protein 1+ H (Negative) Urine Glucose (UA) 1+ H (Negative) Urine Ketones Trace H (Negative) Urine Blood Trace H (Negative) Urine Nitrite Negative (Negative) Urine Bilirubin Negative (Negative) Urine Urobilinogen <2.0 (<2.0) mg/dL Ur Leukocyte Esterase Negative (Negative) Urine RBC 1 (0-5) /hpf Urine WBC 1 (0-5) /hpf Ur Squamous Epith Cells <1 (0-4) /hpf Urine Mucus Rare H (None) /hpf Coronavirus (PCR) Detected A (Not Detectd) - Radiology Data Radiology results: report reviewed, image reviewed (Imaging shows bilateral infiltrate) Disposition Clinical Impression: Bilateral pneumonia, COVID-19, Dehydration, Failure to thrive in adult, Weakness Disposition: ADMITTED IP TO THIS HOSP Condition: Fair Referrals: Tye Dowd DO [Primary Care Provider] - 1-2 days
[2020-04-24] MEDS ORDERED: PNEUMONIA PROTOCOL UTILIZED 1 EACH MISC PO PRN (14:46)
[2020-04-24] MEDS ORDERED: cefTRIAXone IN SWFI 1,000 MG/10 ML SYRINGE IVP STA (14:49)
[2020-04-24] MEDS ORDERED: HEPARIN SODIUM,PORCINE 10,000 UNIT/ML 1 ML VIAL IV ONE (14:49)
[2020-04-24] MEDS ORDERED: HEPARIN SODIUM,PORCINE 5,000 UNIT/ML 1 ML VIAL IV PRN (14:49)
[2020-04-24] MEDS ORDERED: dexAMETHasone 2 MG TAB PO STA (14:51)
--- NOTE | 2020-04-24 14:52 | ED ---
Medical Decision Making - Lab Data Result diagrams: 04/24/20 12:06 04/24/20 12:06 Lab Results 04/24/20 04/24/20 04/24/20 Range/Units 12:06 12:06 12:06 WBC 8.1 (3.8-10.6) k/uL RBC 5.22 (4.30-5.90) m/uL Hgb 18.4 H (13.0-17.5) gm/dL Hct 52.7 (39.0-53.0) % MCV 101.0 H (80.0-100.0) fL MCH 35.2 H (25.0-35.0) pg MCHC 34.9 (31.0-37.0) g/dL RDW 13.2 (11.5-15.5) % Plt Count 119 L (150-450) k/uL MPV 8.3 Neutrophils % 86 % Lymphocytes % 4 % Monocytes % 7 % Eosinophils % 0 % Basophils % 1 % Neutrophils # 7.0 (1.3-7.7) k/uL Lymphocytes # 0.4 L (1.0-4.8) k/uL Monocytes # 0.6 (0-1.0) k/uL Eosinophils # 0.0 (0-0.7) k/uL Basophils # 0.1 (0-0.2) k/uL PT 10.2 (9.0-12.0) sec INR 1.0 (<1.2) APTT 27.9 (22.0-30.0) sec D-Dimer 1.82 H (<0.60) mg/L FEU Sodium 132 L (137-145) mmol/L Potassium 5.5 H (3.5-5.1) mmol/L Chloride 97 L (98-107) mmol/L Carbon Dioxide 26 (22-30) mmol/L Anion Gap 9 mmol/L BUN 34 H (9-20) mg/dL Creatinine 1.70 H (0.66-1.25) mg/dL Est GFR (CKD-EPI)AfAm 43 (>60 ml/min/1.73 sqM) Est GFR (CKD-EPI)NonAf 37 (>60 ml/min/1.73 sqM) Glucose 188 H (74-99) mg/dL Calcium 8.7 (8.4-10.2) mg/dL Magnesium 2.2 (1.6-2.3) mg/dL Total Bilirubin 1.2 (0.2-1.3) mg/dL AST 36 (17-59) U/L ALT 18 (4-49) U/L Alkaline Phosphatase 62 (38-126) U/L Lactate Dehydrogenase 769 H (313-618) U/L C-Reactive Protein 86.8 H (<10.0) mg/L Total Protein 7.7 (6.3-8.2) g/dL Albumin 4.2 (3.5-5.0) g/dL Urine Color Urine Appearance (Clear) Urine pH (5.0-8.0) Ur Specific [place] (1.001-1.035) Urine Protein (Negative) Urine Glucose (UA) (Negative) Urine Ketones (Negative) Urine Blood (Negative) Urine Nitrite (Negative) Urine Bilirubin (Negative) Urine Urobilinogen (<2.0) mg/dL Ur Leukocyte Esterase (Negative) Urine RBC (0-5) /hpf Urine WBC (0-5) /hpf Ur Squamous Epith Cells (0-4) /hpf Urine Mucus (None) /hpf Coronavirus (PCR) (Not Detectd) 04/24/20 04/24/20 Range/Units 12:19 13:14 WBC (3.8-10.6) k/uL RBC (4.30-5.90) m/uL Hgb (13.0-17.5) gm/dL Hct (39.0-53.0) % MCV (80.0-100.0) fL MCH (25.0-35.0) pg MCHC (31.0-37.0) g/dL RDW (11.5-15.5) % Plt Count (150-450) k/uL MPV Neutrophils % % Lymphocytes % % Monocytes % % Eosinophils % % Basophils % % Neutrophils # (1.3-7.7) k/uL Lymphocytes # (1.0-4.8) k/uL Monocytes # (0-1.0) k/uL Eosinophils # (0-0.7) k/uL Basophils # (0-0.2) k/uL PT (9.0-12.0) sec INR (<1.2) APTT (22.0-30.0) sec D-Dimer (<0.60) mg/L FEU Sodium (137-145) mmol/L Potassium (3.5-5.1) mmol/L Chloride (98-107) mmol/L Carbon Dioxide (22-30) mmol/L Anion Gap mmol/L BUN (9-20) mg/dL Creatinine (0.66-1.25) mg/dL Est GFR (CKD-EPI)AfAm (>60 ml/min/1.73 sqM) Est GFR (CKD-EPI)NonAf (>60 ml/min/1.73 sqM) Glucose (74-99) mg/dL Calcium (8.4-10.2) mg/dL Magnesium (1.6-2.3) mg/dL Total Bilirubin (0.2-1.3) mg/dL AST (17-59) U/L ALT (4-49) U/L Alkaline Phosphatase (38-126) U/L Lactate Dehydrogenase (313-618) U/L C-Reactive Protein (<10.0) mg/L Total Protein (6.3-8.2) g/dL Albumin (3.5-5.0) g/dL Urine Color Yellow Urine Appearance Clear (Clear) Urine pH 5.5 (5.0-8.0) Ur Specific [place] 1.020 (1.001-1.035) Urine Protein 1+ H (Negative) Urine Glucose (UA) 1+ H (Negative) Urine Ketones Trace H (Negative) Urine Blood Trace H (Negative) Urine Nitrite Negative (Negative) Urine Bilirubin Negative (Negative) Urine Urobilinogen <2.0 (<2.0) mg/dL Ur Leukocyte Esterase Negative (Negative) Urine RBC 1 (0-5) /hpf Urine WBC 1 (0-5) /hpf Ur Squamous Epith Cells <1 (0-4) /hpf Urine Mucus Rare H (None) /hpf Coronavirus (PCR) Detected A (Not Detectd) Disposition Clinical Impression: Bilateral pneumonia, COVID-19, Dehydration, Failure to thrive in adult, Weakness, Elevated d-dimer Disposition: ADMITTED IP TO THIS [facility] Condition: Fair Referrals: Tye Dowd DO [Primary Care Provider] - 1-2 days
[2020-04-24] MEDS ORDERED: HEPARIN SOD,PORK IN 0.45% NACL 25,000 UNIT in 0.45% NACL 1 250ML.BAG IV SCH (15:00)
--- NOTE | 2020-04-24 16:55 | NM ---
EXAMINATION TYPE: NM pul perfusion DATE OF EXAM: 04/24/2020 COMPARISON: Chest x-ray earlier today. HISTORY: Cough and congestion. Following administration of 5 mCi Tc 99m MAA. Images obtained post injection. FINDINGS: Perfusion images show small to moderate areas of diminished radiotracer uptake in the upper lungs sharon aterally. There are smaller scattered areas of diminished radiotracer uptake in the mid lungs. Chest x-ray shows chronic emphysematous and pulmonary fibrotic changes. Some increased opacities in t he periphery of the mid to lower lungs. Overall findings somewhat indeterminate given the poor prolonged radiotracer uptake bilaterally, thou gh this is not typical location for pulmonary emboli. IMPRESSION: As above.
[2020-04-24] MEDS: ALBUTEROL HFA INHALER INHALATION SCH ×2 (17:33→21:15)
--- NOTE | 2020-04-24 17:58 | P.CNPUL ---
History of Present Illness Consult date: 04/24/20 Reason for consult: dyspnea History of present illness: 79-year-old male patient was hospitalized for coronavirus Covid 19 related infection. The patient presented to the ED with generalized weakness and feeling tired and decreased oral intake. His been feeling this for the past 10 days. His PCR came back positive and the reverse department. He has no fever. No chest pain no night sweats. No other complaints otherwise. His blood work showed a white cell count of 8.1 and the patient had lymphopenia. His BUN was 34 with a creatinine of 1.7 and the potassium level of 5.5 with a sodium level of 132. The patient also had a CRP of 86, LDH of 769 and the ferritin level was still pending. UA is negative other than some +1 glucose and protein. His chest x-ray showed bibasilar nonspecific pulmonary infiltrates on the left. The patient is currently on 2 L of oxygen by nasal cannula with a pulse ox of 99%. On room air oxygen, his pulse ox is 98%. The patient had a d-dimer of 1.82 with a normal coagulation profile. Review of Systems Constitutional: Reports poor appetite, Reports weakness Eyes: bilateral decreased vision, denies blurred vision, denies bulging eye Ears: bilateral: decreased hearing, deny: ear discharge, earache, tinnitus Breasts: absent: as per HPI, gynecomastia Cardiovascular: Reports as per HPI, Reports dyspnea on exertion Respiratory: Reports as per HPI, Reports dyspnea Gastrointestinal: Reports as per HPI Genitourinary: Reports as per HPI Musculoskeletal: Reports as per HPI Musculoskeletal: absent: ankle pain, ankle stiffness, ankle swelling Integumentary: Reports as per HPI Neurological: Reports as per HPI Psychiatric: Reports as per HPI Endocrine: Reports as per HPI, Reports fatigue Hematologic/Lymphatic: Reports as per HPI Allergic/Immunologic: Reports as per HPI Past Medical History Past Medical History: Coronary Artery Disease (CAD), COPD, Hyperlipidemia, Hypertension, Vascular Disorder History of Any Multi-Drug Resistant Organisms: None Reported Past Surgical History: Coronary Bypass/CABG Additional Past Surgical History / Comment(s): aortic aneursym and bypass surgery 11/29 Past Anesthesia/Blood Transfusion Reactions: No Reported Reaction Past Psychological History: No Psychological Hx Reported Smoking Status: Former smoker Past Alcohol Use History: Rare Past Drug Use History: None Reported - Past Family History Father Additional Family Medical History / Comment(s): heart issues Mother Additional Family Medical History / Comment(s): of an aneurysm. Medications and Allergies Home Medications Medication Instructions Recorded Confirmed Type Clopidogrel [Plavix] 75 mg PO DAILY 07/14/16 04/24/20 History Metoprolol Succinate (ER) [Toprol 100 mg PO DAILY 04/24/20 04/24/20 History Xl] Tamsulosin [Flomax] 0.4 mg PO DAILY 04/24/20 04/24/20 History lisinopriL [Zestril] 10 mg PO DAILY 04/24/20 04/24/20 History Allergies Allergy/AdvReac Type Severity Reaction Status Date / Time pravastatin AdvReac Memory Verified 04/24/20 12:25 Issues Physical Exam Vitals: Vital Signs Temp Pulse Resp BP Pulse Ox 04/24/20 15:08 108 H 18 146/76 98 04/24/20 13:30 100 20 152/71 99 04/24/20 10:56 98.2 F 108 H 18 145/65 98 Intake and Output 04/24/20 04/24/20 04/24/20 06:59 14:59 22:59 Other: Weight 99.79 kg The patient appeared well nourished and normally developed. Vital signs as documented. Head exam is unremarkable. No scleral icterus or corneal arcus noted. Neck is without jugular venous distension, thyromegaly, or carotid bruits. Carotid upstrokes are brisk bilaterally. Lungs are clear to auscultation and percussion. Cardiac exam reveals the PMI to be normally sized and situated. The patient has a scar of previous thoracotomy over the anterior chest area. This is attributed to previous bypass surgery. Rhythm is regular. First and second heart sounds normal. No murmurs, rubs or gallops. Abdominal exam reveals normal bowel sounds, no masses, no organomegaly and no aortic enlargement. Extremities are nonedematous and both femoral and pedal pulses are normal.Examination of the skin revealed no evidence of significant rashes, suspicious appearing nevi or other concerning lesions.Neurologically, the pa tient is awake and alert and the patient does not have any focal neurological deficit. Cranial nerves are essentially intact. Results - Laboratory Findings CBC and BMP: 04/24/20 12:06 04/24/20 12:06 PT/INR, D-dimer PT 10.2 sec (9.0-12.0) 04/24/20 12:06 INR 1.0 (<1.2) 04/24/20 12:06 D-Dimer 1.82 mg/L FEU (<0.60) H 04/24/20 12:06 Abnormal lab findings: Abnormal Labs 04/24/20 04/24/20 04/24/20 12:06 12:06 12:06 Hgb 18.4 H MCV 101.0 H MCH 35.2 H Plt Count 119 L Lymphocytes # 0.4 L D-Dimer 1.82 H Sodium 132 L Potassium 5.5 H Chloride 97 L BUN 34 H Creatinine 1.70 H Glucose 188 H Lactate Dehydrogenase 769 H C-Reactive Protein 86.8 H Urine Protein Urine Glucose (UA) Urine Ketones Urine Blood Urine Mucus Coronavirus (PCR) 04/24/20 04/24/20 12:19 13:14 Hgb MCV MCH Plt Count Lymphocytes # D-Dimer Sodium Potassium Chloride BUN Creatinine Glucose Lactate Dehydrogenase C-Reactive Protein Urine Protein 1+ H Urine Glucose (UA) 1+ H Urine Ketones Trace H Urine Blood Trace H Urine Mucus Rare H Coronavirus (PCR) Detected A - Diagnostic Findings Chest x-ray: image reviewed Assessment and Plan Plan: 1 acute Covid 19 related pneumonia 2 acute hypoxic respiratory failure. The patient was initially placed on 2 L and currently is on room air oxygen. 3 elevated inflammatory markers secondary to pneumonia 4 generalized weakness and constitutions symptoms of failure to thrive secondary to coronavirus/Covid 19 related infection 5 coronary artery disease with previous bypass surgery 6 chronic stage III kidney disease 7 BPH 8 hypertension Plan Supportive care with Decadron 6 mg by mouth daily Lovenox 40 mg subcu for DVT prophylaxis IV fluids for hydration Resume home medications We'll continue to follow
[2020-04-24] MEDS: ENOXAPARIN 40 MG/0.4 ML SYRINGE SQ SCH (18:41)
[2020-04-24 20:21] LABS: Ferritin 617.7 ng/mL (22.0-322.0)
[2020-04-25] MEDS: ALBUTEROL HFA INHALER INHALATION SCH ×6 (01:25→20:17)
[2020-04-25 07:23] LABS: Basophils % (A) 0 %; Eosinophils % (A) 0 %; HCT 46.8 % (39.0-53.0); Lymphocytes # (A) 0.4 k/uL (1.0-4.8); Lymphocytes % (A) 5 %; MCHC 31.7 g/dL (31.0-37.0); MCV 103.9 fL (80.0-100.0); Macrocytosis Slight; Mean Platelet Volume 8.6; Monocytes # (A) 0.4 k/uL (0-1.0); Monocytes % (A) 5 %; Neutrophils # (A) 7.3 k/uL (1.3-7.7); Neutrophils % (A) 89 %; Platelet Count 156 k/uL (150-450); RBC 4.51 m/uL (4.30-5.90); RDW 13.8 % (11.5-15.5); WBC 8.2 k/uL (3.8-10.6)
[2020-04-25 07:32] LABS: HGB 14.9 gm/dL (13.0-17.5)
[2020-04-25 07:45] LABS: African American GFR (CKD) 55 (>60 ml/min/1.73 sqM); Anion Gap 10 mmol/L; Blood Urea Nitrogen 28 mg/dL (9-20); Calcium 8.2 mg/dL (8.4-10.2); Carbon Dioxide 23 mmol/L (22-30); Chloride 102 mmol/L (98-107); Glucose 194 mg/dL (74-99); Magnesium 2.2 mg/dL (1.6-2.3); Non-African American GFR(CKD) 48 (>60 ml/min/1.73 sqM); Potassium 5.3 mmol/L (3.5-5.1); Sodium 135 mmol/L (137-145)
[2020-04-25] MEDS: TAMSULOSIN 0.4 MG CAP.ER.24H PO SCH (07:57)
[2020-04-25] MEDS: ENOXAPARIN 40 MG/0.4 ML SYRINGE SQ SCH (07:57)
[2020-04-25] MEDS: METOPROLOL SUCCINATE (ER) 100 MG TAB.ER.24H PO SCH (07:57)
[2020-04-25] MEDS: lisinopriL 10 MG TAB PO SCH (07:57)
[2020-04-25] MEDS: ASCORBIC ACID 500 MG TAB PO SCH (07:57)
[2020-04-25] MEDS: CLOPIDOGREL 75 MG TAB PO SCH (07:57)
[2020-04-25] MEDS: ZINC SULFATE 220 MG CAP PO SCH (07:57)
--- NOTE | 2020-04-25 08:31 | XR ---
EXAMINATION TYPE: XR chest 1V portable DATE OF EXAM: 04/25/2020 Comparison: 04/24/2020 Clinical History: 79-year-old male pneumonia Findings: Median sternotomy wires and post-CABG clips in the mediastinum. Heart normal size. Some patchy opacit y in the periphery of the left lower lung appears slightly increased. Opacity at the right base now h as a more strandy appearance suggesting atelectasis. Impression: Slight progression in airspace disease at the peripheral left base.
[2020-04-25 13:02] VITALS: BMI 32.5
--- NOTE | 2020-04-25 13:19 | P.HPIM ---
History of Present Illness this is a pleasant 79 yo M with past medical history of coronary artery disease status post CABG, hyperlipidemia, COPD, benign prostatic hypertrophy and peripheral vascular disease. Patient presents because of generalized weakness of 10 days duration started about 2 days after the Thanksgiving associated with significant arthralgia and loose bowel movement about once to twice a day but no abdominal pain or vomiting. No respiratory symptoms, no chest pain or dyspnea or coughing. Patient also has been tested positive for Covid as he states He is saturating 91-94 and 2 L oxygen via nasal cannula. Afebrile. CBC is unremarkable, potassium 5.3, creatinine 1.3. Urinalysis is not suspicious for infection Chest x-ray: Bibasilar infiltrates, greater on the left Review of Systems CONSTITUTIONAL: No fever, no malaise, no fatigue. HEENT: No recent visual problems or hearing problems. Denied any sore throat. CARDIOVASCULAR: No orthopnea, PND, no palpitations, no syncope. PULMONARY: No shortness of breath, no cough, no hemoptysis. GASTROINTESTINAL: No diarrhea, no nausea, no vomiting, no abdominal pain. Normoactive bowel sounds. NEUROLOGICAL: No headaches, no weakness, no numbness. HEMATOLOGICAL: Denies any bleeding or petechiae. GENITOURINARY: Denies any burning micturition, frequency, or urgency. MUSCULOSKELETAL/RHEUMATOLOGICAL: Denies any joint pain, swelling, or any muscle pain. ENDOCRINE: Denies any polyuria or polydipsia. Past Medical History Past Medical History: Coronary Artery Disease (CAD), COPD, Hyperlipidemia, Prostate Disorder, Vascular Disorder Additional Past Medical History / Comment(s): PAD History of Any Multi-Drug Resistant Organisms: None Reported Past Surgical History: Coronary Bypass/CABG Additional Past Surgical History / Comment(s): 2017 CABG 3 vessel with abdominal aortic aneurysm repair, abdominal aortagrams with runoffs, L common femoral artery endartectomy with superficial femoral artery remote endartectomy/stent distal SFA. Past Anesthesia/Blood Transfusion Reactions: No Reported Reaction Past Psychological History: No Psychological Hx Reported Additional Psychological History / Comment(s): Pt resides alone. He is i ndependent. Smoking Status: Former smoker Past Alcohol Use History: Rare Additional Past Alcohol Use History / Comment(s): Pt started smoking in 1949 and quit in 2011. He was a ppd smoker. Past Drug Use History: None Reported - Past Family History Father Additional Family Medical History / Comment(s): Father of a broken heart at the age of 80yrs. Mother Family Medical History: Vascular Disorder Additional Family Medical History / Comment(s): of an aneurysm at the age of 78yrs. Medications and Allergies Home Medications Medication Instructions Recorded Confirmed Type Clopidogrel [Plavix] 75 mg PO DAILY 07/14/16 04/24/20 History Metoprolol Succinate (ER) [Toprol 100 mg PO DAILY 04/24/20 04/24/20 History Xl] Tamsulosin [Flomax] 0.4 mg PO DAILY 04/24/20 04/24/20 History lisinopriL [Zestril] 10 mg PO DAILY 04/24/20 04/24/20 History Allergies Allergy/AdvReac Type Severity Reaction Status Date / Time pravastatin AdvReac Memory Verified 04/24/20 12:25 Issues Physical Exam Vitals: Vital Signs Temp Pulse Resp BP Pulse Ox 04/24/20 15:08 108 H 18 146/76 98 04/24/20 13:30 100 20 152/71 99 04/24/20 10:56 98.2 F 108 H 18 145/65 98 Intake and Output 04/24/20 04/24/20 04/24/20 06:59 14:59 22:59 Other: Weight 99.79 kg 99.79 kg GENERAL: The patient is alert and oriented x3, not in any acute distress. Well developed, well nourished. HEENT: Pupils are round and equally reacting to light. EOMI. No scleral icterus. No conjunctival pallor. Normocephalic, atraumatic. No pharyngeal erythema. No thyromegaly. CARDIOVASCULAR: S1 and S2 present. No murmurs, rubs, or gallops. PULMONARY: Chest is clear to auscultation, no wheezing or crackles. ABDOMEN: Soft, nontender, nondistended, normoactive bowel sounds. No palpable organomegaly. MUSCULOSKELETAL: No joint swelling or deformity. EXTREMITIES: No cyanosis, clubbing, or pedal edema. NEUROLOGICAL: Gross neurological examination did not reveal any focal deficits. SKIN: No rashes. No petechiae Results CBC & Chem 7: 04/25/20 06:25 04/25/20 06:25 Labs: Abnormal Lab Results - Last 24 Hours (Table) 04/24/20 04/24/20 04/24/20 Range/Units 12:06 12:06 12:06 Hgb 18.4 H (13.0-17.5) gm/dL MCV 101.0 H (80.0-100.0) fL MCH 35.2 H (25.0-35.0) pg Plt Count 119 L (150-450) k/uL Lymphocytes # 0.4 L (1.0-4.8) k/uL D-Dimer 1.82 H (<0.60) mg/L FEU Sodium 132 L (137-145) mmol/L Potassium 5.5 H (3.5-5.1) mmol/L Chloride 97 L (98-107) mmol/L BUN 34 H (9-20) mg/dL Creatinine 1.70 H (0.66-1.25) mg/dL Glucose 188 H (74-99) mg/dL Lactate Dehydrogenase 769 H (313-618) U/L C-Reactive Protein 86.8 H (<10.0) mg/L Urine Protein (Negative) Urine Glucose (UA) (Negative) Urine Ketones (Negative) Urine Blood (Negative) Urine Mucus (None) /hpf Coronavirus (PCR) (Not Detectd) 04/24/20 04/24/20 Range/Units 12:19 13:14 Hgb (13.0-17.5) gm/dL MCV (80.0-100.0) fL MCH (25.0-35.0) pg Plt Count (150-450) k/uL Lymphocytes # (1.0-4.8) k/uL D-Dimer (<0.60) mg/L FEU Sodium (137-145) mmol/L Potassium (3.5-5.1) mmol/L Chloride (98-107) mmol/L BUN (9-20) mg/dL Creatinine (0.66-1.25) mg/dL Glucose (74-99) mg/dL Lactate Dehydrogenase (313-618) U/L C-Reactive Protein (<10.0) mg/L Urine Protein 1+ H (Negative) Urine Glucose (UA) 1+ H (Negative) Urine Ketones Trace H (Negative) Urine Blood Trace H (Negative) Urine Mucus Rare H (None) /hpf Coronavirus (PCR) Detected A (Not Detectd) Thrombosis Risk Factor Assmnt - Choose All That Apply Any of the Below Risk Factors Present?: Yes Each Factor Represents 1 point: Abnormal pulmonary function (COPD), Obesity (BMI >25) Other Risk Factors: Yes Each Risk Factor Represents 3 Points: Age 75 years or older Other congenital or acquired thrombophilia - If yes, enter type in comment: No Thrombosis Risk Factor Assessment Total Risk Factor Score: 5 Thrombosis Risk Factor Assessment Level: High Risk Assessment and Plan Assessment: Acute Covid infection, with bilateral pneumonia mild acute hypoxic respiratory failure Generalized weakness secondary to his viral infection Gastroenteritis secondary to Covid infection History of coronary artery disease status post CABG Chronic kidney disease, stage III Hyperlipidemia COPD, no acute exacerbation Benign prostatic hypertrophy Peripheral vascular disease Plan: This is a pleasant 79 years old male who presents with Covid pneumonia and gastroenteritis. Continue with gentle hydration for 24 hours, Lovenox, dexamethasone, Plavix. Vitamin C and zinc. Pulmonary consult Labs and medication were reviewed.. Continue same treatment. Continue with symptomatic treatment. Resume home medication. Monitor lytes and vitals. DVT and GI prophylaxis. Further recommendations depends on the clinical course of the patient DVT prophylaxis: Subcutaneou Lovenox GI Prophylaxis: Ppi PT/OT: Pending Prognosis is guarded
--- NOTE | 2020-04-25 13:21 | P.PN ---
Subjective Principal diagnosis: this is a pleasant 79 yo M with past medical history of coronary artery disease status post CABG, hyperlipidemia, COPD, benign prostatic hypertrophy and peripheral vascular disease. Patient presents because of generalized weakness of 10 days duration started about 2 days after the Thanksgiving associated with significant arthralgia and loose bowel movement about once to twice a day but no abdominal pain or vomiting. No respiratory symptoms, no chest pain or dyspnea or coughing. Patient also has been tested positive for Covid as he states He is saturating 91-94 and 2 L oxygen via nasal cannula. Afebrile. CBC is unremarkable, potassium 5.3, creatinine 1.3. Urinalysis is not suspicious for infection Chest x-ray: Bibasilar infiltrates, greater on the left 04/25/2020 Patient still feeling generally weak and arthralgia, no respiratory symptoms. He has loose bowel movement one time today. Vital signs stable. Creatinine 1.39 which is at his baseline of chronic kidney disease, potassium is slightly elevated at 5.3. Was a is not detected. Discontinue IV fluids. Continue with the same treatment Review of Systems CONSTITUTIONAL: No fever, no malaise, no fatigue. HEENT: No recent visual problems or hearing problems. Denied any sore throat. CARDIOVASCULAR: No orthopnea, PND, no palpitations, no syncope. PULMONARY: No shortness of breath, no cough, no hemoptysis. GASTROINTESTINAL: No diarrhea, no nausea, no vomiting, no abdominal pain. Normoactive bowel sounds. NEUROLOGICAL: No headaches, no weakness, no numbness. HEMATOLOGICAL: Denies any bleeding or petechiae. Active Medications Generic Name Dose Route Start Last Admin Trade Name Maya PRN Reason Stop Dose Admin Albuterol Sulfate 2 puff 04/24/20 16:00 04/25/20 12:19 Albuterol Hfa Inhaler INHALATION 2 puff RT-Q4H KYLAH Administration Ascorbic Acid 1,000 mg 04/25/20 09:00 04/25/20 07:57 Ascorbic Acid 500 Mg Tab PO 1,000 mg DAILY KYLAH Administration Clopidogrel Bisulfate 75 mg 04/25/20 09:00 04/25/20 07:57 Clopidogrel 75 Mg Tab PO 75 mg DAILY KYLAH Administration Enoxaparin Sodium 40 mg 04/24/20 18:00 04/25/20 07:57 Enoxaparin 40 Mg/0.4 Ml Syringe SQ 40 mg DAILY KYLAH Administration Lisinopril 10 mg 04/25/20 09:00 04/25/20 07:57 Lisinopril 10 Mg Tab PO 10 mg DAILY KYLAH Administration Metoprolol Succinate 100 mg 04/25/20 09:00 04/25/20 07:57 Metoprolol Succinate (Er) 100 Mg Tab.Er.24h PO 100 mg DAILY KYLAH Administration Miscellaneous Information 1 each 04/24/20 14:46 Pneumonia Protocol Utilized 1 Each Misc PO ONCE PRN Per Protocol Pantoprazole Sodium 40 mg 04/25/20 13:30 Pantoprazole 40 Mg Tablet PO [id number] KYLAH Tamsulosin HCl 0.4 mg 04/25/20 09:00 04/25/20 07:57 Tamsulosin 0.4 Mg Cap.Er.24h PO 0.4 mg DAILY KYLAH Administration Zinc Sulfate 220 mg 04/25/20 09:00 04/25/20 07:57 Zinc Sulfate 220 Mg Cap PO 220 mg DAILY KYLAH Administration Objective - Vital Signs Vital signs: Vital Signs Temp 97.7 F 04/25/20 10:19 Pulse 92 04/25/20 10:19 Resp 22 04/25/20 10:19 BP 104/65 04/25/20 10:19 Pulse Ox 91 L 04/25/20 10:19 Intake & Output 04/24/20 04/25/20 04/25/20 18:59 06:59 18:59 Intake Total 500 900 Output Total 300 Balance 500 600 Weight 99.79 kg 99.79 kg Intake: Intake, IV Titration 260 900 Amount Sodium Chloride 0.9% 1, 260 900 000 ml @ 130 mls/hr IV . Q7H42M STA Rx#:[id number] Oral 240 Output: Urine 300 Other: Voiding Method Urinal Toilet Urinal # Voids 1 3 - Exam GENERAL: The patient is alert and oriented x3, not in any acute distress. Well developed, well nourished. HEENT: Pupils are round and equally reacting to light. EOMI. No scleral icterus. No conjunctival pallor. Normocephalic, atraumatic. No pharyngeal erythema. No thyromegaly. CARDIOVASCULAR: S1 and S2 present. No murmurs, rubs, or gallops. PULMONARY: Chest is clear to auscultation, no wheezing or crackles. ABDOMEN: Soft, nontender, nondistended, normoactive bowel sounds. No palpable organomegaly. MUSCULOSKELETAL: No joint swelling or deformity. EXTREMITIES: No cyanosis, clubbing, or pedal edema. NEUROLOGICAL: Gross neurological examination did not reveal any focal deficits. SKIN: No rashes. no petechiae. - Labs CBC & Chem 7: 04/25/20 06:25 04/25/20 06:25 Labs: Abnormal Lab Results - Last 24 Hours (Table) 04/24/20 04/24/20 04/24/20 Range/Units 12:06 12:06 13:14 MCV (80.0-100.0) fL Lymphocytes # (1.0-4.8) k/uL Sodium (137-145) mmol/L Potassium (3.5-5.1) mmol/L BUN (9-20) mg/dL Creatinine (0.66-1.25) mg/dL Glucose (74-99) mg/dL Calcium (8.4-10.2) mg/dL Ferritin 617.7 H (22.0-322.0) ng/mL Procalcitonin 0.14 H (0.02-0.09) ng/mL Urine Protein 1+ H (Negative) Urine Glucose (UA) 1+ H (Negative) Urine Ketones Trace H (Negative) Urine Blood Trace H (Negative) Urine Mucus Rare H (None) /hpf 04/25/20 04/25/20 Range/Units 06:25 06:25 MCV 103.9 H (80.0-100.0) fL Lymphocytes # 0.4 L (1.0-4.8) k/uL Sodium 135 L (137-145) mmol/L Potassium 5.3 H (3.5-5.1) mmol/L BUN 28 H (9-20) mg/dL Creatinine 1.39 H (0.66-1.25) mg/dL Glucose 194 H (74-99) mg/dL Calcium 8.2 L (8.4-10.2) mg/dL Ferritin (22.0-322.0) ng/mL Procalcitonin (0.02-0.09) ng/mL Urine Protein (Negative) Urine Glucose (UA) (Negative) Urine Ketones (Negative) Urine Blood (Negative) Urine Mucus (None) /hpf Assessment and Plan Assessment: Acute Covid infection, with bilateral pneumonia mild acute hypoxic respiratory failure Generalized weakness secondary to his viral infection Gastroenteritis secondary to Covid infection History of coronary artery disease status post CABG Chronic kidney disease, stage III Hyperlipidemia COPD, no acute exacerbation Benign prostatic hypertrophy Peripheral vascular disease Plan: This is a pleasant 79 years old male who presents with Covid pneumonia and gastroenteritis. Continue with gentle hydration for 24 hours, Lovenox, dexamethasone, Plavix. Vitamin C and zinc. Pulmonary consult Labs and medication were reviewed.. Continue same treatment. Continue with symptomatic treatment. Resume home medication. Monitor lytes and vitals. DVT and GI prophylaxis. Further recommendations depends on the clinical course of the patient DVT prophylaxis: Subcutaneou Lovenox GI Prophylaxis: Ppi PT/OT: Pending Prognosis is guarded
--- NOTE | 2020-04-25 16:40 | P.PN ---
Subjective Progress Note Date: 04/25/20 Principal diagnosis: Acute CoVID 19 pneumonia 79-year-old male patient was hospitalized for coronavirus Covid 19 related infection. The patient presented to the ED with generalized weakness and feeling tired and decreased oral intake. His been feeling this for the past 10 days. His PCR came back positive and the reverse department. He has no fever. No chest pain no night sweats. No other complaints otherwise. His blood work showed a white cell count of 8.1 and the patient had lymphopenia. His BUN was 34 with a creatinine of 1.7 and the potassium level of 5.5 with a sodium level of 132. The patient also had a CRP of 86, LDH of 769 and the ferritin level was still pending. UA is negative other than some +1 glucose and protein. His chest x-ray showed bibasilar nonspecific pulmonary infiltrates on the left. The patient is currently on 2 L of oxygen by nasal cannula with a pulse ox of 99%. On room air oxygen, his pulse ox is 98%. The patient had a d-dimer of 1.82 with a normal coagulation profile. The patient is seen today 04/25/2020 in follow-up on the regular medical floor. He is awake and alert in no acute distress. He is currently maintaining good O2 saturations in the 90s on 2 L/m per nasal cannula. He is afebrile. Hemodynamically stable. Blood culture reveals no growth. He is continued on vitamin supplements, Lovenox, Decadron. Chest x-ray continues to show patchy bilateral opacities. White count 0.2. Hemoglobin 14.9. Sodium 135. Potassium 5.3. Creatinine 1.39. Objective - Vital Signs Vital signs: Vital Signs Temp 97.7 F 04/25/20 10:19 Pulse 92 04/25/20 10:19 Resp 22 04/25/20 10:19 BP 104/65 04/25/20 10:19 Pulse Ox 92 L 04/25/20 16:03 Intake & Output 04/24/20 04/25/20 04/25/20 18:59 06:59 18:59 Intake Total 500 900 Output Total 300 Balance 500 600 Weight 99.79 kg 99.79 kg Intake: Intake, IV Titration 260 900 Amount Sodium Chloride 0.9% 1, 260 900 000 ml @ 130 mls/hr IV . Q7H42M STA Rx#:[id number] Oral 240 Output: Urine 300 Other: Voiding Method Urinal Toilet Urinal # Voids 1 3 - Exam GENERAL EXAM: Alert, pleasant 79-year-old gentleman, on 2 L nasal cannula comfortable in no apparent distress. HEAD: Normocephalic. EYES: Normal reaction of pupils, equal size. NOSE: Clear with pink turbinates. THROAT: No erythema or exudates. NECK: No masses, no JVD. CHEST: No chest wall deformity. LUNGS: Equal air entry with bilateral scattered rhonchi. CVS: S1 and S2 normal with no audible murmur, regular rhythm. ABDOMEN: No hepatosplenomegaly, normal bowel sounds, no guarding or rigidity. SPINE: No scoliosis or deformity SKIN: No rashes CENTRAL NERVOUS SYSTEM: No focal deficits, tone is normal in all 4 extremities. EXTREMITIES: There is no peripheral edema. No clubbing, no cyanosis. Peripheral pulses are intact. - Labs CBC & Chem 7: 04/25/20 06:25 04/25/20 06:25 Labs: Abnormal Lab Results - Last 24 Hours (Table) 04/24/20 04/24/20 04/25/20 Range/Units 12:06 12:06 06:25 MCV 103.9 H (80.0-100.0) fL Lymphocytes # 0.4 L (1.0-4.8) k/uL Sodium (137-145) mmol/L Potassium (3.5-5.1) mmol/L BUN (9-20) mg/dL Creatinine (0.66-1.25) mg/dL Glucose (74-99) mg/dL Calcium (8.4-10.2) mg/dL Ferritin 617.7 H (22.0-322.0) ng/mL Procalcitonin 0.14 H (0.02-0.09) ng/mL 04/25/20 Range/Units 06:25 MCV (80.0-100.0) fL Lymphocytes # (1.0-4.8) k/uL Sodium 135 L (137-145) mmol/L Potassium 5.3 H (3.5-5.1) mmol/L BUN 28 H (9-20) mg/dL Creatinine 1.39 H (0.66-1.25) mg/dL Glucose 194 H (74-99) mg/dL Calcium 8.2 L (8.4-10.2) mg/dL Ferritin (22.0-322.0) ng/mL Procalcitonin (0.02-0.09) ng/mL Microbiology - Last 24 Hours (Table) 04/24/20 12:06 Blood Culture - Preliminary Blood No Growth after 24 hours Assessment and Plan Assessment: 1 acute Covid 19 related pneumonia 2 acute hypoxic respiratory failure. The patient was initially placed on 2 L and currently is on room air oxygen. 3 elevated inflammatory markers secondary to pneumonia 4 generalized weakness and constitutions symptoms of failure to thrive secondary to coronavirus/Covid 19 related infection 5 coronary artery disease with previous bypass surgery 6 chronic stage III kidney disease 7 BPH 8 hypertension Plan The patient was seen and evaluated by Dr. Knowles Chest x-ray and labs reviewed Currently stable from the pulmonary standpoint Titrate down the FiO2 as tolerated Continue Lovenox and Decadron Continue vitamin supplements Obtain inflammatory markers Continue to follow I, the cosigning physician, performed a history & physical examination of the patient. Lungs sounds with bilateral scattered rhonchi. Maintaining good O2 saturations in the 90s on 2 L/m per nasal cannula. I discussed the assessment and plan of care with my nurse practitioner, Emely Barriga. I attest to the above note as dictated by her.
[2020-04-25] MEDS: dexAMETHasone 2 MG TAB PO SCH (17:55)
[2020-04-25] MEDS: PANTOPRAZOLE 40 MG TABLET PO SCH (17:55)
[2020-04-26] MEDS: ALBUTEROL HFA INHALER INHALATION SCH ×7 (00:39→23:47)
[2020-04-26 06:41] LABS: Basophils % (A) 0 %; Eosinophils % (A) 0 %; HCT 44.5 % (39.0-53.0); HGB 14.8 gm/dL (13.0-17.5); Lymphocytes # (A) 0.3 k/uL (1.0-4.8); Lymphocytes % (A) 3 %; MCHC 33.2 g/dL (31.0-37.0); MCV 102.4 fL (80.0-100.0); Macrocytosis Slight; Mean Platelet Volume 8.4; Monocytes # (A) 0.5 k/uL (0-1.0); Monocytes % (A) 5 %; Neutrophils # (A) 9.1 k/uL (1.3-7.7); Neutrophils % (A) 91 %; Platelet Count 176 k/uL (150-450); RBC 4.35 m/uL (4.30-5.90); RDW 13.3 % (11.5-15.5); WBC 10.1 k/uL (3.8-10.6)
[2020-04-26] MEDS: ZINC SULFATE 220 MG CAP PO SCH (09:11)
[2020-04-26] MEDS: CLOPIDOGREL 75 MG TAB PO SCH (09:12)
[2020-04-26] MEDS: lisinopriL 10 MG TAB PO SCH (09:12)
[2020-04-26] MEDS: TAMSULOSIN 0.4 MG CAP.ER.24H PO SCH (09:12)
[2020-04-26] MEDS: PANTOPRAZOLE 40 MG TABLET PO SCH (09:12)
[2020-04-26] MEDS: ENOXAPARIN 40 MG/0.4 ML SYRINGE SQ SCH (09:12)
[2020-04-26] MEDS: dexAMETHasone 2 MG TAB PO SCH (09:12)
[2020-04-26] MEDS: ASCORBIC ACID 500 MG TAB PO SCH (09:12)
[2020-04-26] MEDS: METOPROLOL SUCCINATE (ER) 100 MG TAB.ER.24H PO SCH (09:13)
--- NOTE | 2020-04-26 13:50 | P.PN ---
Subjective Progress Note Date: 04/26/20 79-year-old male patient was hospitalized for coronavirus Covid 19 related infection. The patient presented to the ED with generalized weakness and feeling tired and decreased oral intake. His been feeling this for the past 10 days. His PCR came back positive and the reverse department. He has no fever. No chest pain no night sweats. No other complaints otherwise. His blood work showed a white cell count of 8.1 and the patient had lymphopenia. His BUN was 34 with a creatinine of 1.7 and the potassium level of 5.5 with a sodium level of 132. The patient also had a CRP of 86, LDH of 769 and the ferritin level was still pending. UA is negative other than some +1 glucose and protein. His c hest x-ray showed bibasilar nonspecific pulmonary infiltrates on the left. The patient is currently on 2 L of oxygen by nasal cannula with a pulse ox of 99%. On room air oxygen, his pulse ox is 98%. The patient had a d-dimer of 1.82 with a normal coagulation profile. The patient is seen today 04/25/2020 in follow-up on the regular medical floor. He is awake and alert in no acute distress. He is currently maintaining good O2 saturations in the 90s on 2 L/m per nasal cannula. He is afebrile. Hemodynamically stable. Blood culture reveals no growth. He is continued on vitamin supplements, Lovenox, Decadron. Chest x-ray continues to show patchy bilateral opacities. White count 0.2. Hemoglobin 14.9. Sodium 135. Potassium 5.3. Creatinine 1.39. On 04/26/2020, the patient is doing well. He is on 2 L of oxygen by nasal cannula. No complaints for now. He remains on Decadron, Lovenox and multivitamin supplements. No nausea. No vomiting. No diarrhea. He was having excessive generalized weakness and fatigue and decreased oral intake which is improved considerably. Objective - Vital Signs Vital signs: Vital Signs Temp 97.6 F 04/26/20 11:00 Pulse 79 04/26/20 11:00 Resp 22 04/26/20 11:00 BP 136/74 04/26/20 11:00 Pulse Ox 91 L 04/26/20 11:00 Intake & Output 04/25/20 04/26/20 04/26/20 18:59 06:59 18:59 Output Total 400 Balance -400 Weight 99.79 kg Output: Urine 400 Other: Voiding Method Toilet Toilet Toilet Urinal Urinal Urinal # Voids 2 - Exam GENERAL EXAM: Alert, pleasant 79-year-old gentleman, on room air oxygen HEAD: Normocephalic. EYES: Normal reaction of pupils, equal size. NOSE: Clear with pink turbinates. THROAT: No erythema or exudates. NECK: No masses, no JVD. CHEST: No chest wall deformity. LUNGS: Equal air entry with bilateral scattered rhonchi. CVS: S1 and S2 normal with no audible murmur, regular rhythm. ABDOMEN: No hepatosplenomegaly, normal bowel sounds, no guarding or rigidity. SPINE: No scoliosis or deformity SKIN: No rashes CENTRAL NERVOUS SYSTEM: No focal deficits, tone is normal in all 4 extremities. EXTREMITIES: There is no peripheral edema. No clubbing, no cyanosis. Peripheral pulses are intact. - Labs CBC & Chem 7: 04/26/20 06:11 04/25/20 06:25 Labs: Abnormal Lab Results - Last 24 Hours (Table) 04/26/20 04/26/20 Range/Units 06:11 06:11 MCV 102.4 H (80.0-100.0) fL Neutrophils # 9.1 H (1.3-7.7) k/uL Lymphocytes # 0.3 L (1.0-4.8) k/uL D-Dimer 1.76 H (<0.60) mg/L FEU Microbiology - Last 24 Hours (Table) 04/24/20 15:20 Blood Culture - Preliminary Blood No Growth after 24 hours 04/24/20 12:06 Blood Culture - Preliminary Blood No Growth after 24 hours Assessment and Plan Plan: 1 acute Covid 19 related pneumonia 2 acute hypoxic respiratory failure. The patient was initially placed on 2 L and currently is on room air oxygen. 3 elevated inflammatory markers secondary to pneumonia 4 generalized weakness and constitutions symptoms of failure to thrive secondary to coronavirus/Covid 19 related infection 5 coronary artery disease with previous bypass surgery 6 chronic stage III kidney disease 7 BPH 8 hypertension Plan Supportive care with Decadron 6 mg by mouth daily , suggest completing the steroids for a total of 10 days. Lovenox 40 mg subcu for DVT prophylaxis Neurologic this patient home O2 the time of discharge. If needed, however this patient to resume of oxygen by nasal cannula. Consider discharge with oxygen if needed. This should gradually improve next few days. He may need home O2.
[2020-04-26 14:22] LABS: C Reactive Protein 5.3 mg/dL (0.0-0.8)
--- NOTE | 2020-04-27 01:11 | P.PN ---
Subjective Principal diagnosis: this is a pleasant 79 yo M with past medical history of coronary artery disease status post CABG, hyperlipidemia, COPD, benign prostatic hypertrophy and peripheral vascular disease. Patient presents because of generalized weakness of 10 days duration started about 2 days after the Thanksgiving associated with significant arthralgia and loose bowel movement about once to twice a day but no abdominal pain or vomiting. No respiratory symptoms, no chest pain or dyspnea or coughing. Patient also has been tested positive for Covid as he states He is saturating 91-94 and 2 L oxygen via nasal cannula. Afebrile. CBC is unremarkable, potassium 5.3, creatinine 1.3. Urinalysis is not suspicious for infection Chest x-ray: Bibasilar infiltrates, greater on the left 04/25/2020 Patient still feeling generally weak and arthralgia, no respiratory symptoms. He has loose bowel movement one time today. Vital signs stable. Creatinine 1.39 which is at his baseline of chronic kidney disease, potassium is slightly elevated at 5.3. Was a is not detected. Discontinue IV fluids. Continue with the same treatment 04/26/2020 Patient feels generally better, his breathing quietly, he is on 3 L oxygen via nasal cannula. No significant diarrhea or abdominal pain. Patient is asking when he can go home, pulmonary service R following the case closely We'll monitor for another 24 hours if he keeps improving and stable we might consider discharge. By pulmonary service Monitor potassium in the morning. Objective - Vital Signs Vital signs: Vital Signs Temp 97.8 F 04/26/20 22:21 Pulse 79 04/26/20 22:21 Resp 19 04/26/20 22:21 BP 121/53 04/26/20 22:21 Pulse Ox 90 L 04/26/20 22:21 Intake & Output 04/26/20 04/26/20 04/27/20 06:59 18:59 06:59 Output Total 400 125 Balance -400 -125 Output: Urine 400 125 Other: Voiding Method Toilet Toilet Urinal Urinal # Voids 2 5 - Exam GENERAL: The patient is alert and oriented x3, not in any acute distress. Well developed, well nourished. HEENT: Pupils are round and equally reacting to light. EOMI. No scleral icterus. No conjunctival pallor. Normocephalic, atraumatic. No pharyngeal erythema. No thyromegaly. CARDIOVASCULAR: S1 and S2 present. No murmurs, rubs, or gallops. PULMONARY: Chest is clear to auscultation, no wheezing or crackles. ABDOMEN: Soft, nontender, nondistended, normoactive bowel sounds. No palpable organomegaly. MUSCULOSKELETAL: No joint swelling or deformity. EXTREMITIES: No cyanosis, clubbing, or pedal edema. NEUROLOGICAL: Gross neurological examination did not reveal any focal deficits. SKIN: No rashes. no petechiae. - Labs CBC & Chem 7: 04/26/20 06:11 04/25/20 06:25 Labs: Abnormal Lab Results - Last 24 Hours (Table) 04/26/20 04/26/20 04/26/20 Range/Units 06:11 06:11 06:11 MCV 102.4 H (80.0-100.0) fL Neutrophils # 9.1 H (1.3-7.7) k/uL Lymphocytes # 0.3 L (1.0-4.8) k/uL D-Dimer 1.76 H (<0.60) mg/L FEU Lactate Dehydrogenase 290 H (120-246) U/L C-Reactive Protein 5.3 H (0.0-0.8) mg/dL Microbiology - Last 24 Hours (Table) 04/24/20 15:20 Blood Culture - Preliminary Blood No Growth after 48 hours 04/24/20 12:06 Blood Culture - Preliminary Blood No Growth after 48 hours Assessment and Plan Assessment: Acute Covid infection, with bilateral pneumonia mild acute hypoxic respiratory failure Generalized weakness secondary to his viral infection Gastroenteritis secondary to Covid infection History of coronary artery disease status post CABG Chronic kidney disease, stage III Hyperlipidemia COPD, no acute exacerbation Benign prostatic hypertrophy Peripheral vascular disease Plan: This is a pleasant 79 years old male who presents with Covid pneumonia and gastroenteritis. Continue with gentle hydration for 24 hours, Lovenox, dexamethasone, Plavix. Vitamin C and zinc. Pulmonary consult Labs and medication were reviewed.. Continue same treatment. Continue with symptomatic treatment. Resume home medication. Monitor lytes and vitals. DVT and GI prophylaxis. Further recommendations depends on the clinical course of the patient DVT prophylaxis: Subcutaneou Lovenox GI Prophylaxis: Ppi PT/OT: Pending Prognosis is guarded
[2020-04-27] MEDS: ALBUTEROL HFA INHALER INHALATION SCH ×3 (03:33→12:04)
[2020-04-27] MEDS: dexAMETHasone 2 MG TAB PO SCH (09:06)
[2020-04-27] MEDS: ENOXAPARIN 40 MG/0.4 ML SYRINGE SQ SCH (09:06)
[2020-04-27] MEDS: METOPROLOL SUCCINATE (ER) 100 MG TAB.ER.24H PO SCH (09:07)
[2020-04-27] MEDS: lisinopriL 10 MG TAB PO SCH (09:07)
[2020-04-27] MEDS: CLOPIDOGREL 75 MG TAB PO SCH (09:07)
[2020-04-27] MEDS: PANTOPRAZOLE 40 MG TABLET PO SCH (09:07)
[2020-04-27] MEDS: ZINC SULFATE 220 MG CAP PO SCH (09:07)
[2020-04-27] MEDS: TAMSULOSIN 0.4 MG CAP.ER.24H PO SCH (09:07)
[2020-04-27] MEDS: ASCORBIC ACID 500 MG TAB PO SCH (09:07)
[2020-04-27 09:52] LABS: African American GFR (CKD) 46.5 (60.0-200.0); Anion Gap 6.3 mmol/L (4.00-12.00); BUN/Creat Ratio 24.38 Ratio (12.00-20.00); Calcium 8.5 mg/dL (8.7-10.3); Carbon Dioxide 25.7 mmol/L (21.6-31.8); Non-African American GFR(CKD) 40.1 (60.0-200.0); Potassium 5.2 mmol/L (3.5-5.5)
[2020-04-27 11:02] VITALS: BP 149/72; RESP 16; TEMP 97.8
[2020-04-27 11:38] VITALS: PULSE 96
--- NOTE | 2020-04-27 13:21 | P.PN ---
Subjective Progress Note Date: 04/27/20 79-year-old male patient was hospitalized for coronavirus Covid 19 related infection. The patient presented to the ED with generalized weakness and feeling tired and decreased oral intake. His been feeling this for the past 10 days. His PCR came back positive and the reverse department. He has no fever. No chest pain no night sweats. No other complaints otherwise. His blood work showed a white cell count of 8.1 and the patient had lymphopenia. His BUN was 34 with a creatinine of 1.7 and the potassium level of 5.5 with a sodium level of 132. The patient also had a CRP of 86, LDH of 769 and the ferritin level was still pending. UA is negative other than some +1 glucose and protein. His c hest x-ray showed bibasilar nonspecific pulmonary infiltrates on the left. The patient is currently on 2 L of oxygen by nasal cannula with a pulse ox of 99%. On room air oxygen, his pulse ox is 98%. The patient had a d-dimer of 1.82 with a normal coagulation profile. The patient is seen today 04/25/2020 in follow-up on the regular medical floor. He is awake and alert in no acute distress. He is currently maintaining good O2 saturations in the 90s on 2 L/m per nasal cannula. He is afebrile. Hemodynamically stable. Blood culture reveals no growth. He is continued on vitamin supplements, Lovenox, Decadron. Chest x-ray continues to show patchy bilateral opacities. White count 0.2. Hemoglobin 14.9. Sodium 135. Potassium 5.3. Creatinine 1.39. On 04/26/2020, the patient is doing well. He is on 2 L of oxygen by nasal cannula. No complaints for now. He remains on Decadron, Lovenox and multivitamin supplements. No nausea. No vomiting. No diarrhea. He was having excessive generalized weakness and fatigue and decreased oral intake which is improved considerably. On 04/27/2020, the patient remains on Decadron, Lovenox and multivitamins regarding the Covid 19 related infection. She also had a component of pneumonia with limited bilateral pulmonary infiltrates in lung bases, slightly worse on the left. The patient LDH from yesterday was down to 19. C-reactive protein is at 5.3. His creatinine today is at 1.6. Sodium level is at 134. D-dimer is 1.76. His white cell count is at 10.4 with a hemoglobin of 14.8. He remains on 3 L of oxygen by nasal cannula with a pulse ox of 92%. He is afebrile. He remains on a combination of Decadron 6 mg by mouth daily and Lovenox 40 mg subcu on a daily basis. Objective - Vital Signs Vital signs: Vital Signs Temp 97.8 F 04/27/20 11:00 Pulse 96 04/27/20 11:36 Resp 16 04/27/20 11:00 BP 149/72 04/27/20 11:00 Pulse Ox 94 L 04/27/20 11:36 Intake & Output 04/26/20 04/27/20 04/27/20 18:59 06:59 18:59 Output Total 525 Balance -525 Output: Urine 525 Other: Voiding Method Toilet Toilet Toilet Urinal Urinal Urinal # Voids 5 - Exam GENERAL EXAM: Alert, pleasant 79-year-old gentleman, on room air oxygen HEAD: Normocephalic. EYES: Normal reaction of pupils, equal size. NOSE: Clear with pink turbinates. THROAT: No erythema or exudates. NECK: No masses, no JVD. CHEST: No chest wall deformity. LUNGS: Equal air entry with bilateral scattered rhonchi. CVS: S1 and S2 normal with no audible murmur, regular rhythm. ABDOMEN: No hepatosplenomegaly, normal bowel sounds, no guarding or rigidity. SPINE: No scoliosis or deformity SKIN: No rashes CENTRAL NERVOUS SYSTEM: No focal deficits, tone is normal in all 4 extremities. EXTREMITIES: There is no peripheral edema. No clubbing, no cyanosis. Peripheral pulses are intact. - Labs CBC & Chem 7: 04/26/20 06:11 04/27/20 06:11 Labs: Abnormal Lab Results - Last 24 Hours (Table) 04/26/20 04/27/20 Range/Units 06:11 06:11 Sodium 134 L (135-145) mmol/L BUN 39.0 H (9.0-27.0) mg/dL Creatinine 1.6 H (0.6-1.5) mg/dL Est GFR (CKD-EPI)AfAm 46.5 L (60.0-200.0) Est GFR (CKD-EPI)NonAf 40.1 L (60.0-200.0) BUN/Creatinine Ratio 24.38 H (12.00-20.00) Ratio Glucose 198 H (70-110) mg/dL Calcium 8.5 L (8.7-10.3) mg/dL Lactate Dehydrogenase 290 H (120-246) U/L C-Reactive Protein 5.3 H (0.0-0.8) mg/dL Microbiology - Last 24 Hours (Table) 04/24/20 15:20 Blood Culture - Preliminary Blood No Growth after 48 hours 04/24/20 12:06 Blood Culture - Preliminary Blood No Growth after 48 hours Assessment and Plan Plan: 1 acute Covid 19 related pneumonia and failed and the patient is currently on oxygen and a pulse ox of 90%. Lightheaded the patient may need to go home without oxygen, especially if the oxygen saturation above 90%. 2 acute hypoxic respiratory failure, recovered and the pulse ox is normalized 3 elevated inflammatory markers secondary to pneumonia 4 generalized weakness and constitutions symptoms of failure to thrive secondary to coronavirus/Covid 19 related infection 5 coronary artery disease with previous bypass surgery 6 chronic stage III kidney disease 7 BPH 8 hypertension Plan Supportive care with Decadron 6 mg by mouth daily , suggest completing the st eroids for a total of 10 days. Lovenox 40 mg subcu for DVT prophylaxis Reevaluation oxygen and possibly send the patient home without oxygen therapy is a saturation remains above 90%.
== END 2020-04-27 15:46 | disposition home health service (06) | DRG 177 ==
LOC: EC 10:53 → 6NMEDSUR 14:46
PROVIDERS: ADMIT Internal Medicine; ATTEND Internal Medicine
DX: U07.1 COVID-19 (principal); J12.89 Other viral pneumonia; J96.01 Acute respiratory failure with hypoxia; A08.39 Other viral enteritis; J44.0 Chronic obstructive pulmonary disease with (acute) lower respiratory infection; R62.7 Adult failure to thrive; N18.30 Chronic kidney disease, stage 3 unspecified; I73.9 Peripheral vascular disease, unspecified; E78.5 Hyperlipidemia, unspecified; E86.0 Dehydration; I12.9 Hypertensive chronic kidney disease with stage 1 through stage 4 chronic kidney disease, or unspecified chronic kidney disease; I25.10 Atherosclerotic heart disease of native coronary artery without angina pectoris; N40.0 Benign prostatic hyperplasia without lower urinary tract symptoms; Z79.02 Long term (current) use of antithrombotics/antiplatelets; Z79.899 Other long term (current) drug therapy; Z86.79 Personal history of other diseases of the circulatory system; Z95.1 Presence of aortocoronary bypass graft; Z87.891 Personal history of nicotine dependence; Z88.8 Allergy status to other drugs, medicaments and biological substances; Z95.820 Peripheral vascular angioplasty status with implants and grafts; Z82.49 Family history of ischemic heart disease and other diseases of the circulatory system
CPT/HCPCS: 36415; 71045; 78580; 80048; 80053; 81001; 82728; 83605; 83615; 83735; 84145; 85025; 85379; 85610; 85730; 86140; 87040; 87502; 87635; 93005; 94640; 96361; 96374; 96375; 99285

== ENCOUNTER → 2020-06-30 | Outpatient (CLI) | payer MEDICARE, OTHER ==
--- NOTE | 2020-06-30 16:01 | XR ---
EXAMINATION TYPE: XR chest 2V DATE OF EXAM: 06/30/2020 COMPARISON: 04/25/2020 INDICATION: History of pneumonia TECHNIQUE: Frontal and lateral views of the chest are obtained. FINDINGS: The heart size is normal. The pulmonary vasculature is normal. There may be some residual increased lung markings left lung base. However, findings have improved ov er the interval. Additional follow-up is recommended.. There is hyperinflation flattened diaphragms compatible COPD. Sternotomy wires from prior CABG are evident. Note is made of epicardial leads. IMPRESSION: 1. Appears to be some residual left lower lobe infiltrate remaining present. Recommend continued foll ow-up.
== END | disposition home or self-care (01) ==
LOC: RADXRYALE 09:53
PROVIDERS: ATTEND Family Medicine
DX: R91.8 Other nonspecific abnormal finding of lung field (principal)
CPT/HCPCS: 71046

== ENCOUNTER → 2020-07-15 | Outpatient (CLI) | payer MEDICARE, OTHER ==
--- NOTE | 2020-07-15 12:00 | ECHOF ---
Referral Reason:R06.02 Shortness of breath; R60.9 Edema; I25.10 MEASUREMENTS -------- HEIGHT: 172.7 cm WEIGHT: 99.8 kg BP: 137/60 RVIDd: 3.8 cm (< 3.3) IVSd: 1.6 cm (0.6 - 1.1) LVIDd: 3.5 cm (3.9 - 5.3) LVPWd: 1.4 cm (0.6 - 1.1) IVSs: 1.9 cm LVIDs: 2.5 cm LVPWs: 1.6 cm LA Diam: 4.0 cm (2.7 - 3.8) LAESV Index (A-L): 20.35 ml/m Ao Diam: 3.6 cm (2.0 - 3.7) AV Cusp: 1.7 cm (1.5 - 2.6) MV EXCURSION: 16.486 mm (> 18.000) MV EF SLOPE: 40 mm/s (70 - 150) EPSS: 0.5 cm MV E Reynaldo: 1.06 m/s MV DecT: 228 ms MV A Reynaldo: 1.12 m/s MV E/A Ratio: 0.95 AV maxP.72 mmHg AV meanP.59 mmHg AR PHT: 923 ms RAP: 5.00 mmHg RVSP: 44.40 mmHg FINDINGS -------- Sinus rhythm. This was a technically adequate study. The left ventricular size is normal. There is moderate concentric left ventricular hypertrophy. O verall left ventricular systolic function is normal with, an EF between 55 - 60 %. The right ventricle is mildly enlarged. Normal LA size by volume 22+/-6 ml/m2. The right atrium is normal in size. Interatrial and interventricular septum intact. Aortic valve is trileaflet and is moderately thickened. There is bujo-og-yrtqnztj aortic regurgitat ion. There is mild aortic stenosis present. Peak/mean gradient across the Aortic Valve is 20.72mm Hg / 9.59mmHg. Mild mitral annular calcification present. There is trace to mild mitral regurgitation. Mild tricuspid regurgitation present. Right ventricular systolic pressure is normal at < 35 mmHg. Trace/mild (physiologic) pulmonic regurgitation. The aortic root size is normal. Normal inferior vena cava with normal inspiratory collapse consistent with estimated right atrial pre ssure of 5 mmHg. There is no pericardial effusion. CONCLUSIONS -------- 1. The left ventricular size is normal. 2. There is moderate concentric left ventricular hypertrophy. 3. Overall left ventricular systolic function is normal with, an EF between 55 - 60 %. 4. The right ventricle is mildly enlarged. 5. Aortic valve is trileaflet and is moderately thickened. 6. There is ansb-ma-fycncyxq aortic regurgitation. 7. There is mild aortic stenosis present. 8. Peak/mean gradient across the Aortic Valve is 20.72mmHg / 9.59mmHg. 9. Mild mitral annular calcification present. 10. There is trace to mild mitral regurgitation. 11. Mild tricuspid regurgitation present. 12. Trace/mild (physiologic) pulmonic regurgitation. 13. There is no pericardial effusion. [employer] APPRENTICE: Mel Valera RDCS
== END | disposition home or self-care (01) ==
LOC: RADECHMAIN 10:06
PROVIDERS: ATTEND Family Medicine
DX: I08.3 Combined rheumatic disorders of mitral, aortic and tricuspid valves (principal); I37.1 Nonrheumatic pulmonary valve insufficiency
CPT/HCPCS: 93306

== ENCOUNTER 2021-01-27 07:59 | Day surgery (SDC) | payer MEDICARE, OTHER ==
[2021-01-26 09:29] VITALS: BMI 32.5
[~2021-01-27 07:59] MED LIST changes: +ASPIRIN 325 MG TAB PO PRN; -ASPIRIN 325 MG TAB PO STA; -IOPAMIDOL-300 100ML BTL INJ ONE; -IOPAMIDOL-370 125ML BTL INJ ONE; -IV FLUID CONTINUATION 1,000 ML IV ONE; -LIDOCAINE 1% INJ 10MG/ML (20 ML MDV) SQ ONE; -MIDAZOLAM 2 MG/2 ML VIAL IV ONE; -SODIUM CHLORIDE 0.9% 1,000 ML IV ONE; -fentaNYL (PF) 50 MCG/ML 2 ML AMP IV ONE
[2021-01-27] MEDS ORDERED: SODIUM CHLORIDE 0.9% 1,000 ML IV ONE (08:16)
[2021-01-27 08:28] LABS: Glucose,Whole Blood 141 mg/dL (75-99)
[2021-01-27 08:30] VITALS: TEMP 97.7
[2021-01-27 08:54] LABS: Basophils % (A) 1 %; Eosinophils # (A) 0.3 k/uL (0-0.7); Eosinophils % (A) 4 %; HGB 16.1 gm/dL (13.0-17.5); Lymphocytes # (A) 1.4 k/uL (1.0-4.8); Lymphocytes % (A) 20 %; MCH 35.5 pg (25.0-35.0); MCHC 33.6 g/dL (31.0-37.0); MCV 105.6 fL (80.0-100.0); Macrocytosis Moderate; Monocytes # (A) 0.4 k/uL (0-1.0); Monocytes % (A) 6 %; Neutrophils # (A) 4.5 k/uL (1.3-7.7); Neutrophils % (A) 66 %; Platelet Count 159 k/uL (150-450); RBC 4.55 m/uL (4.30-5.90); RDW 13.5 % (11.5-15.5); WBC 6.8 k/uL (3.8-10.6)
[2021-01-27 09:05] LABS: Calcium 9.2 mg/dL (8.4-10.2); Potassium 5.2 mmol/L (3.5-5.1)
[2021-01-27] MEDS ORDERED: LIDOCAINE 1% INJ 10MG/ML (20 ML MDV) ONE (09:14)
[2021-01-27] MEDS: MIDAZOLAM 2 MG/2 ML VIAL IVP ONE ×2 (09:26→09:30)
[2021-01-27] MEDS ORDERED: LIDOCAINE 1% INJ 10MG/ML (20 ML MDV) SQ ONE (09:29)
[2021-01-27] MEDS ORDERED: IOPAMIDOL-250 100ML BTL INTRAARTER ONE (09:46)
--- NOTE | 2021-01-27 10:29 | P.OP ---
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 No evidence of endoleak Iliacs: Bilateral common iliac, internal iliac and external iliac arteries are patent with some mild atherosclerotic disease and no evidence of stenosis Femorals: Bilateral common femoral arteries patent without significant stenosis. Bilateral profundus femoris arteries are widely patent without any stenosis. Right superficial femoral artery at the takeoff has approximately 90% stenosis. There are stents lining the entire right superficial femoral artery that are patent. Left superficial femoral artery is occluded at the takeoff with reconstitution at the popliteal artery behind the knee. Popliteal: Bilateral popliteal arteries are patent with mild after stenotic disease without any evidence of stenosis. Tibials: Left tibioperoneal trunk is patent with three-vessel takeoff on the left with two-vessel runoff to the ankle. There is mild atherosclerotic disease throughout. Right tibial peroneal trunk is stenotic approximately 90%. Two- vessel runoff to the ankle noted. Operative narrative: After written informed consent was obtained the patient all risks benefits competitions were described the patient is brought to the [facility] and laid in a supine position. The area of the right groin was prepped and draped in the usual sterile fashion. Local anesthesia with moderate sedation was performed with continuous pulse ox monitoring and EKG monitoring. Utilizing ultrasound the right common femoral artery was visualized and shown to be patent without any significant plaque. Utilizing a multipurpose needle under ultrasound guidance the artery was accessed. Guidewire was placed followed by 5-Russian sheath. 035 Glidewire was then placed into the aorta followed by pigtail catheter. Angiogram was then obtained of the aorta. Catheter was then placed at the bifurcation and lower extremity runoffs were obtained. Once completed all guidewires, catheters and sheaths were removed and pressure was placed for hemostasis. Patient tolerated procedure well was sent to PACU for recovery. Patient would benefit from retrograde access in the tibials to attempt to get across the superficial femoral artery and stenting versus open femoral to popliteal artery bypass with CryoVein. Plan - Discharge Summary Discharge Rx Participant: Yes New Discharge Prescriptions: No Action Clopidogrel [Plavix] 75 mg PO DAILY lisinopriL [Zestril] 20 mg PO DAILY Tamsulosin [Flomax] 0.4 mg PO DAILY Metoprolol Succinate (ER) [Toprol XL] 100 mg PO DAILY Fluticasone/Vilanterol [Breo Ellipta 100-25 Mcg Inhaler] 1 inhalation PO Q24HR Empagliflozin [Jardiance] 10 mg PO DAILY Aspirin 81 mg PO DAILY Discharge Medication List Clopidogrel [Plavix] 75 mg PO DAILY 07/14/16 [History] Metoprolol Succinate (ER) [Toprol XL] 100 mg PO DAILY 04/24/20 [History] Tamsulosin [Flomax] 0.4 mg PO DAILY 04/24/20 [History] lisinopriL [Zestril] 20 mg PO DAILY 04/24/20 [History] Aspirin 81 mg PO DAILY 01/26/21 [History] Empagliflozin [Jardiance] 10 mg PO DAILY 01/26/21 [History] Fluticasone/Vilanterol [Breo Ellipta 100-25 Mcg Inhaler] 1 inhalation PO Q24HR 01/26/21 [History] Follow up Appointment(s)/Referral(s): Dmitry Arias DO [STAFF PHYSICIAN] - 02/03/21 12:30 pm (FOLLOW UP APPOINTMENT IS ON JanTuesday AT 12:30) Patient Instructions/Handouts: Angiogram (DC), Procedural Sedation (ED)
--- NOTE | 2021-01-27 12:05 | IR ---
EXAMINATION TYPE: IR angio abdominal w runoff DATE OF EXAM: 01/27/2021 COMPARISON: NONE HISTORY: Fluoroscopy time. Fluoroscopy was provided to the referring clinician.
[2021-01-27 15:07] VITALS: PULSE 72
[2021-01-27 15:41] VITALS: BP 150/78; RESP 18
== END 2021-01-27 15:45 | disposition home or self-care (01) ==
LOC: CATHCVL 07:59
PROVIDERS: ATTEND Surgery
DX: I70.213 Atherosclerosis of native arteries of extremities with intermittent claudication, bilateral legs (principal); Z95.828 Presence of other vascular implants and grafts; Z79.82 Long term (current) use of aspirin; Z79.899 Other long term (current) drug therapy; Z79.02 Long term (current) use of antithrombotics/antiplatelets; I71.4 Abdominal aortic aneurysm, without rupture; Z87.891 Personal history of nicotine dependence
CPT/HCPCS: 36200; 75625; 75716; 76937; 80048; 85025; 87635; C1769 ×4; C1894; J2250; J2001; Q9966